=== PATIENT | female | born 1945 | race Caucasian/White ===

== ENCOUNTER 2019-12-22 09:44 | Outpatient (CLI) | payer MEDICARE, MEDICAID, SELFPAY | END 2019-12-22 09:45 | disposition home or self-care (01) | LOC: ANHAUDIO 12:03 | PROVIDERS: PCP Internal Medicine | DX: H90.3 Sensorineural hearing loss, bilateral (principal) | CPT/HCPCS: 92557; 92567 ==

== ENCOUNTER 2020-03-06 09:19 | Outpatient (RCR) | payer MEDICARE, MEDICAID, SELFPAY | END 2020-03-06 23:59 | disposition home or self-care (01) | LOC: ANHAUDIO 09:19 | PROVIDERS: PCP Internal Medicine | DX: Z46.1 Encounter for fitting and adjustment of hearing aid (principal) | CPT/HCPCS: V5160; V5261 ==

== ENCOUNTER 2021-01-03 10:25 | Outpatient (CLI) | payer MEDICARE, MEDICAID, SELFPAY ==
--- NOTE | ~2021-01-03 | CT_ITS ---
EXAMINATION: CT abdomen pelvis wo/w con DATE: 01/03/2021 11:31 INDICATION: Bilateral flank pain. Microscopic hematuria. TECHNIQUE: Computed tomography (CT) of the abdomen and pelvis was performed without and subsequently with 130 cc Omnipaque 350 intravenous contrast. Automated exposure control and iterative reconstructi on technique were employed. Exam dose: 1801.78 mGy-cm total exam DLP. COMPARISON: 10/15/[address] abdomen pelvis FINDINGS: The lung bases are clear of infiltrate or consolidation. Mild cardiomegaly. Coronary artery calcification. Prominent mitral annulus calcification. No pericard ial or pleural effusion. Very small sliding hiatal hernia. Status post cholecystectomy. No bile duct or pancreatic duct dilatation. No hepatic, splenic or liver and pancreatic, adrenal space-occupying mass lesion. Multiple bilateral up to 1.5 cm renal cysts. No urinary tract calculus or hydroureteronephrosis. The urinary bladder is unremarkable. Status post hysterectomy. There are diverticula of left and right colon; no CT evidence of diverticulitis. No bowel obstruction, bowel wall thickening, pneumatosis or intraperitoneal free air. There is extensive abdominal aortic calcification but no aneurysm. Celiac and superior mesenteric, re nal artery and iliac and femoral artery calcifications. No intraperitoneal or retroperitoneal or pelvic mass lesion or adenopathy or ascites. Diffuse osteopenia. Diffuse idiopathic skeletal hyperostosis of the thoracic spine. Degenerative spurring of the lumbar s pine. Status post right total hip arthroplasty. IMPRESSION: Multiple bilateral up to 1.5 cm renal cysts Very small sliding hiatal hernia Status post cholecystectomy Status post hysterectomy. Diverticulosis of left and right colon; no CT evidence of diverticulitis Reviewed, dictated and finalized at [facility]. Reviewed, dictated and finalized at location [facility].
[2021-01-03 11:00] LABS: Estimated Glomerular Filt Rate > 60
== END 2021-01-03 10:26 | disposition home or self-care (01) ==
PROVIDERS: PCP Family Medicine; Visit Provider Urology
DX: R31.1 Benign essential microscopic hematuria (principal); N28.1 Cyst of kidney, acquired; Z90.49 Acquired absence of other specified parts of digestive tract; K44.9 Diaphragmatic hernia without obstruction or gangrene; Z90.710 Acquired absence of both cervix and uterus; K57.90 Diverticulosis of intestine, part unspecified, without perforation or abscess without bleeding
CPT/HCPCS: 74178; Q9967

== ENCOUNTER 2021-08-29 09:28 | Emergency (ER) | payer MEDICARE, MEDICAID, SELFPAY ==
--- NOTE | 2021-08-29 09:55 | ED.URI ---
HPI - URI/Sore Throat General Chief Complaint: Upper Respiratory Infection Stated Complaint: congestion/cough/wheezing/body aches/post Source: patient and RN notes reviewed Mode of arrival: ambulatory History of Present Illness HPI Narrative: This is a 76 presented to urgent care with complaints of body aches, chills, productive cough with greenish sputum, headache, earache, slight shortness of breath, rib pain due to coughing and decreased appetite. Patient notes that she had one episode of diarrhea and notes that it all started Friday. Patient is requesting an influenza and Covid testing. Influenza negative she will go to our drive-through testing site for Covid testing. Patient is allergic to several antibiotics she has taken doxycycline and denies any reaction in the past to doxycycline she will be prescribed doxycycline. The patient denies , CP, palpitation, extremity numbness, lightheadedness, dizziness, constipation, diarrhea, chills, or fever. MD elicited complaint: cough, nasal congestion and sinus pain (Frontal and maxillary) Related Data Home Medications Medication Instructions Recorded Confirmed amlodipine 5 mg tablet 5 mg PO DAILY 07/16/19 aspirin 81 mg tablet,delayed 81 mg PO DAILY 07/16/19 07/28/19 release ferrous sulfate 325 mg (65 mg 325 mg PO DAILY 07/16/19 07/28/19 iron) tablet lubiprostone 8 mcg capsule 8 mcg PO BID 07/16/19 07/28/19 [id number] 3.5 1 drop EACH EYE .COMPLEX 07/16/19 07/28/19 mg/mL-10,000 unit/mL-0.1% eye drops netarsudil 0.02 % eye drops 1 drop EACH EYE QPM 07/16/19 07/28/19 triamcinolone acetonide 0.5 % 1 applic TOPICAL BID 07/16/19 07/28/19 topical cream azelastine drp 08/29/21 dorzolamide-timolol 08/29/21 hydroxyzine HCl 08/29/21 latanoprost drp 08/29/21 meloxicam 08/29/21 sertraline mg 08/29/21 Allergies Allergy/AdvReac Type Severity Reaction Status Date / Time amoxicillin Allergy Severe HIVES Verified 08/29/21 09:39 ampicillin Allergy Unknown Other Verified 08/29/21 09:39 azithromycin Allergy Unknown Other Verified 08/29/21 09:39 carisoprodol Allergy Unknown Other Verified 08/29/21 09:39 celecoxib Allergy Unknown Other Verified 08/29/21 09:39 ciprofloxacin Allergy Unknown Other Verified 08/29/21 09:39 codeine Allergy Unknown Other Verified 08/29/21 09:39 erythromycin base Allergy Unknown Nausea Verified 08/29/21 09:39 morphine Allergy Unknown Other Verified 08/29/21 09:39 Penicillins Allergy Unknown Other Verified 08/29/21 09:39 Review of Systems Review of Systems: A 14 organ system Review of Systems was performed and pertinent positives included in the HPI, otherwise remaining ROS is negative. [facility] Past Medical History Medical History (Updated 08/29/21 @ 10:08 by CIARA Harrell) Acid reflux Anemia Anxiety Cataract fragments in both eyes following surgery Depression Glaucoma High cholesterol Hypothyroidism Osteoporosis Pelvic organ prolapse quantification stage 1 rectocele Skin cancer of forehead Vaginal atrophy Surgical History Surgical History H/O hysterectomy with oophorectomy H/O shoulder surgery History of bladder surgery History of hip replacement Hx of cholecystectomy Family History Family History Mother Family history of coronary artery disease Family history of cardiovascular disease Sibling Diabetes mellitus Cerebrovascular accident Family history of malignant neoplasm of urinary bladder Family history of thyroid disease Family history of blood dyscrasia Asthma Family history of hearing loss Father Patient's father is Sibling Cerebrovascular accident Other Family history of lung disease Social History Social History Years smoked: 1 Smoking status: Former smoker Smoking end date:
[2021-08-29 10:00] VITALS: BP 155/84; PULSE 83; RESP 16; TEMP 36.9; O2SAT 93
== END 2021-08-29 10:15 | disposition home or self-care (01) ==
PROVIDERS: Emergency Provider Nurse Practitioner; PCP Family Medicine
DX: J01.10 Acute frontal sinusitis, unspecified (principal); Z20.822 Contact with and (suspected) exposure to COVID-19; Z87.891 Personal history of nicotine dependence; H40.9 Unspecified glaucoma; E78.00 Pure hypercholesterolemia, unspecified; E03.9 Hypothyroidism, unspecified; M81.0 Age-related osteoporosis without current pathological fracture; K21.9 Gastro-esophageal reflux disease without esophagitis; Z96.649 Presence of unspecified artificial hip joint; Z79.82 Long term (current) use of aspirin
CPT/HCPCS: 87804; 99213; G0463

== ENCOUNTER → 2021-08-30 01:43 | Outpatient (CLI) | payer MEDICARE, MEDICAID, SELFPAY ==
[2021-08-30 19:33] LABS: SARS-CoV-2 RNA PCR Positive
== END ==
PROVIDERS: PCP Family Medicine; Visit Provider Nurse Practitioner
DX: U07.1 COVID-19 (principal)
CPT/HCPCS: C9803; U0003; U0005

== ENCOUNTER 2022-03-11 10:49 | Outpatient (RCR) | payer MEDICARE, MEDICAID, SELFPAY | END 2022-03-11 23:59 | disposition home or self-care (01) | LOC: ANHAUDIO 10:49 | PROVIDERS: PCP Family Medicine; Visit Provider Family Medicine | DX: Z46.1 Encounter for fitting and adjustment of hearing aid (principal) | CPT/HCPCS: 99199 ==

== ENCOUNTER 2022-03-12 15:30 | Emergency (ER) | payer MEDICARE, MEDICAID, SELFPAY ==
--- NOTE | ~2022-03-12 | XR_ITS ---
XR hip LT min 2V DATE: 03/12/2022 16:11 INDICATION: Left hip pain since yesterday after lifting a mattress TECHNIQUE: AP and lateral views COMPARISON: None FINDINGS: Right hip replacement. Normal alignment at the pubic symphysis and sacroiliac joints. No fracture or dislocation, avascular necrosis or bone destruction of the left hip. Left hip joint sp krunal appears relatively well preserved. Degenerative spurring of the lumbar spine. IMPRESSION: No fracture or dislocation of the left hip Reviewed, dictated and finalized at location [facility].
[2022-03-12 15:49] VITALS: BP 118/60; PULSE 103; RESP 16; TEMP 36.1; O2SAT 95
[2022-03-12 16:27] VITALS: BP 133/78; PULSE 80; RESP 16; TEMP 36.8; O2SAT 98
--- NOTE | 2022-03-12 17:09 | ED.LOWEXIN ---
HPI - Extremity Injury (Lower) General Chief Complaint: Extremity Injury, Lower Stated Complaint: left hip pain Time Seen by Provider: 03/12/22 16:49 History of Present Illness HPI Narrative: 77-year-old female here for evaluation of left-sided gluteal pain for the past day. Patient states that she was lifting a heavy mattress in her house when she developed some crampy pain in her left glute. Since then, the pain has increased in nature, and has made it difficult to walk. She does bear weight on the hip but states it is painful. She has not taken a medication for her pain. Denies back pain, saddle anesthesia, incontinence or retention of bowel or bladder. Denies falls, trauma, weakness, numbness, tingling. Related Data Home Medications Medication Instructions Recorded Confirmed amlodipine 5 mg tablet 5 mg PO DAILY 07/16/19 aspirin 81 mg tablet,delayed 81 mg PO DAILY 07/16/19 07/28/19 release (Adult Low Dose Aspirin) ferrous sulfate 325 mg (65 mg 325 mg PO DAILY 07/16/19 07/28/19 iron) tablet lubiprostone 8 mcg capsule 8 mcg PO BID 07/16/19 07/28/19 (Amitiza) [id number]-lkfkrlyqg-lrsbhcoj 3.5 1 drop ophthalmic (eye) .COMPLEX 07/16/19 07/28/19 mg/mL-10,000 unit/mL-0.1% eye drops (Maxitrol) netarsudil 0.02 % eye drops 1 drop ophthalmic (eye) QPM 07/16/19 07/28/19 (Rhopressa) triamcinolone acetonide 0.5 % 1 applic topical BID 07/16/19 07/28/19 topical cream azelastine 0.05 % eye drops drp 08/29/21 dorzolamide 22.3 mg-timolol 6.8 08/29/21 mg/mL eye drops hydroxyzine HCl 25 mg tablet 08/29/21 latanoprost 0.005 % eye drops drp 08/29/21 meloxicam 7.5 mg tablet 08/29/21 sertraline 100 mg tablet mg 08/29/21 Allergies Allergy/AdvReac Type Severity Reaction Status Date / Time amoxicillin Allergy Severe HIVES Verified 08/29/21 09:39 ampicillin Allergy Unknown Other Verified 08/29/21 09:39 azithromycin Allergy Unknown Other Verified 08/29/21 09:39 carisoprodol Allergy Unknown Other Verified 08/29/21 09:39 celecoxib Allergy Unknown Other Verified 08/29/21 09:39 ciprofloxacin Allergy Unknown Other Verified 08/29/21 09:39 codeine Allergy Unknown Other Verified 08/29/21 09:39 erythromycin base Allergy Unknown Nausea Verified 08/29/21 09:39 morphine Allergy Unknown Other Verified 08/29/21 09:39 Penicillins Allergy Unknown Other Verified 08/29/21 09:39 Review of Systems Review of Systems: Gen: Denies fevers or chills Eyes: Denies eye pain or visual change ENT: Denies congestion Respiratory: Denies shortness of breath or cough CV: Denies chest pain or palpitations GI: Denies abdominal pain nausea, emesis or diarrhea : denies burning, urgency, frequency or hematuria Musculoskeletal: Reports left gluteal pain. Neuro: Denies numbness, tingling, weakness or focal weakness Skin: Denies rash Except as documented, all other systems reviewed and negative PMFSH Past Medical History Medical History Acid reflux Anemia Anxiety Cataract fragments in both eyes following surgery Depression Glaucoma High cholesterol Hypothyroidism Osteoporosis Pelvic organ prolapse quantification stage 1 rectocele Skin cancer of forehead Vaginal atrophy Surgical History Surgical History H/O hysterectomy with oophorectomy H/O shoulder surgery History of bladder surgery History of hip replacement Hx of cholecystectomy Family History Family History Mother Family history of coronary artery disease Family history of cardiovascular disease Sibling Diabetes mellitus Cerebrovascular accident Family history of malignant neoplasm of urinary bladder Family history of thyroid disease Family history of blood dyscrasia Asthma Family history of hearing loss Father Patient's father is Sibling Cerebrovasc
[2022-03-12] MEDS: ACETAMINOPHEN 325 MG TABLET 650 MG PO (17:34)
[2022-03-12] MEDS: LIDOCAINE 5% PATCH 1 PATCH TRANSDERM (17:34)
[2022-03-12 18:12] VITALS: BP 124/80; PULSE 81; RESP 14; TEMP 36.8; O2SAT 98
== END 2022-03-12 18:14 | disposition home or self-care (01) ==
PROVIDERS: Emergency Provider Family Medicine; PCP Family Medicine
DX: S76.012A Strain of muscle, fascia and tendon of left hip, initial encounter (principal); S73.102A Unspecified sprain of left hip, initial encounter; K21.9 Gastro-esophageal reflux disease without esophagitis; H40.9 Unspecified glaucoma; E78.00 Pure hypercholesterolemia, unspecified; E03.9 Hypothyroidism, unspecified; M81.0 Age-related osteoporosis without current pathological fracture; Z98.42 Cataract extraction status, left eye; Z98.41 Cataract extraction status, right eye; Z85.828 Personal history of other malignant neoplasm of skin; Z96.641 Presence of right artificial hip joint; Z86.2 Personal history of diseases of the blood and blood-forming organs and certain disorders involving the immune mechanism; Z79.82 Long term (current) use of aspirin; Z87.891 Personal history of nicotine dependence; X50.0XXA Overexertion from strenuous movement or load, initial encounter
CPT/HCPCS: 73502; 99283; A9270

== ENCOUNTER 2022-11-25 10:19 | Outpatient (CLI) | payer MEDICARE, MEDICAID, SELFPAY ==
--- NOTE | ~2022-11-25 | XR_ITS ---
XR lumbar spine 2-3V DATE: 11/25/2022 11:09 INDICATION: Generalized low back pain. No known injury. TECHNIQUE: AP, lateral, coned lateral lumbosacral views COMPARISON: 07/05/2016 lumbar spine FINDINGS: Normal alignment of the lumbar spine with exception of mild retrolisthesis at L4-5, likely due to degenerative disc disease. There is mild to moderate degenerative disease throughout the lumba r and lumbosacral spine, most prominent at L1-2. Included lower thoracic and lumbar pedicles are intact. No fracture or bone destruction is evident. The sacroiliac joints are intact. Status post right total hip arthroplasty. Surgical clips overlie the right upper and lower quadrants of the abdomen. There is extensive calcification of the abdominal aorta and iliac arteries, without apparent abdomina l aortic aneurysm. IMPRESSION: Moderate degenerative disc disease; little interval change since 07/05/2016 Reviewed, dictated and finalized at location [facility]. [employer]
--- NOTE | ~2022-11-25 | XR_ITS ---
XR thoracic spine 3V DATE: 11/25/2022 11:09 INDICATION: Generalized mid back pain. No known injury. TECHNIQUE: AP, lateral, swimmer views COMPARISON: None FINDINGS: Osteopenia. Severe cervical spondylosis. No fracture or dislocation or bone destruction of the thoracic spine is evident. The thoracic pedicle s appear intact. No paraspinal soft tissue thickening. There is prominent degenerative spurring of th e thoracic spine. IMPRESSION: Prominent degenerative spurring of the thoracic spine Osteopenia No thoracic spine fracture or dislocation or bone destruction is detected Reviewed, dictated and finalized at location [facility]. [employer]
--- NOTE | ~2022-11-25 | XR_ITS ---
XR cervical spine 4-5V DATE: 11/25/2022 11:09 INDICATION: Generalized neck pain. Limited left shoulder range of motion. No known injury. TECHNIQUE: AP, open-mouth, lateral, swimmer views COMPARISON: 05/04/2016 MR cervical spine FINDINGS: There is straightening and mild reversal of the cervical spine, which may be due to muscle spasm. C1 and C2 are normally aligned and the odontoid process is intact. No fracture or dislocation or lock ed facet or prevertebral soft tissue swelling. Very prominent spurring is noted anteriorly at C3-4, C4-5 and C5-6, with prominent posterior spurring as well at C4-5. There is severe loss of interspace height at C4-5. Uncovertebral joint spurring is noted, particularly at C4-5. There is degenerative change at the apop hyseal joints. Diffuse osteopenia. IMPRESSION: Straightening and mild reversal cervical spine, likely due to muscle spasm Severe cervical spondylosis Reviewed, dictated and finalized at location [facility]. GORY CONSULTANT IMPRESSION: Straightening and mild reversal cervical spine, likely due to muscl e spasm Severe cervical spondylosis
== END 2022-11-25 10:20 | disposition home or self-care (01) ==
PROVIDERS: PCP Family Medicine; Visit Provider Family Medicine
DX: M51.36 Other intervertebral disc degeneration, lumbar region (principal); M47.892 Other spondylosis, cervical region; M85.88 Other specified disorders of bone density and structure, other site
CPT/HCPCS: 72050; 72072; 72100

== ENCOUNTER 2022-12-11 17:46 | Inpatient (IN) | payer MEDICARE, MEDICAID, SELFPAY ==
[2022-12-11] VITALS (7 sets, daily range): BP systolic 105–146; BP diastolic 48–92; PULSE 88–120; RESP 15–25; TEMP 36.3–37.7; O2SAT 81–96; BMI 29.6
--- NOTE | ~2022-12-11 | CT_ITS ---
CT Scan of the Chest without Contrast: Clinical Indication: Pneumonia Technique: Contiguous sections were acquired throughout the chest without intravenous contrast. Dose reduction technique was used on this scan by utilizing automated exposure control and iterative recon struction technique. The dose-length product (DLP) was 549.73 mGy-cm. Findings: There is no evidence of any significant mediastinal, hilar or axillary lymphadenopathy. There are ath erosclerotic calcifications of the aorta. Coronary artery calcifications are also present. There is no evidence of pleural or pericardial effusion. The lungs are clear. No pulmonary nodules or infiltrates are noted. Images through the upper abdomen reveal no abnormalities. Impression: Clear lungs. Reviewed, dictated and finalized at location . Impression: Clear lungs.
--- NOTE | ~2022-12-11 | XR_ITS ---
EXAMINATION: XR chest 1V portable Exam Date/Time: 12/11/2022 18:00 CDT HISTORY: SOA, COUGH, CARDIOMEGALY Comparison: 12/28/2018. RESULT: Lines, tubes, and devices: None. Lungs and pleura: Increased peripheral reticular opacities. Cardiomediastinal silhouette: Stable. Other: No acute osseous or upper abdominal finding. IMPRESSION: Mild interstitial edema. Reviewed, dictated and finalized at location [facility]. IMPRESSION: Mild interstitial edema.
--- NOTE | ~2022-12-11 | XR_ITS ---
EXAMINATION: XR chest 1V portable INDICATION: Shortness of breath TECHNIQUE: Portable AP chest at 1122 hours COMPARISON: 12/11/2022 FINDINGS: There is a mild interstitial pattern with interval improvement. No pleural effusion or pneu mothorax. The cardiomediastinal silhouette is normal. IMPRESSION: 1. Mild pulmonary edema with interval improvement. Reviewed, dictated and finalized at location A.
--- NOTE | 2022-12-11 17:53 | PC.NURSE ---
Patient denies wearing O2 at home. patient placed on 4L NC at this time due to O2 saturation
[2022-12-11] MEDS: IPRATROPIUM BR 0.02% INH SOLN 0.5 MG/2.5 ML VIAL 1.5 MG INHALATION (18:15)
[2022-12-11] MEDS: ALBUTEROL SULFATE NEB 2.5 MG/3 ML INH 15 MG INHALATION (18:15)
[2022-12-11 18:25] LABS: Basophils Absolute Auto 0.1 K/mm3 (0.0-0.1); Basophils Percent Auto 0.4 % (0.2-1.2); Eosinophils Absolute Auto 0.1 K/mm3 (0-0.3); Eosinophils Percent Auto 0.5 % (0-4.4); Hematocrit 39.2 % (37.0-47.0); Hemoglobin 12.2 g/dL (12.0-15.0); Immature Granulocyte Absolute 0.14 K/mm3 (0.00-0.031); Immature Granulocyte Percent A 0.8 % (0-0.5); Immature Platelet Fraction Pct 2.8 % (0.9-11.2); Lymphocytes Absolute Auto 1.49 K/mm3 (0.9-3.2); Lymphocytes Percent Auto 8.8 % (18.3-44.2); Mean Corpuscular HGB Conc 31.1 g/dl (32-36); Mean Corpuscular Hemoglobin 26.1 pg (26-34); Mean Corpuscular Volume 83.9 fl (80-100); Mean Platelet Volume 10.6 fl (7.4-10.4); Monocytes Absolute Auto 1.1 K/mm3 (0.1-0.6); Monocytes Percent Auto 6.5 % (2.6-8.5); Platelet Count Result 324 k/mm3 (150-375); Red Blood Count 4.67 M/mm3 (4.2-5.4); Red Cell Distribution Width 13.5 % (11.5-14.5); White Blood Count 16.9 K/mm3 (4.5-10.0)
[2022-12-11 18:33] LABS: Lactic Acid Reflex 1.2 mmol/L (0.7-2.0)
[2022-12-11 18:42] LABS: Alanine Aminotransferase 14 U/L (6-35); Albumin Level 3.9 g/dL (3.5-5.1); Alkaline Phosphatase 70 U/L (38-126); Anion Gap 8 mmol/L (8-16); Aspartate Amino Transferase 20 U/L (14-36); Bilirubin,Total 0.5 mg/dL (0.2-1.3); Blood Urea Nitrogen 14 mg/dL (7-17); Calcium 9.4 mg/dL (8.4-10.2); Carbon Dioxide 27 mmol/L (22-30); Chloride 106 mmol/L (98-107); Estimated CRCL calculation 67 ml/min; Estimated Glomerular Filt Rate > 60; Glucose 145 mg/dL (65-110); Potassium 3.9 mmol/L (3.4-5.0); Sodium 141 mmol/L (137-145)
[2022-12-11 19:00] LABS: NT Pro B Type Natriuretic Pept 1360 pg/mL (19.9-100)
[2022-12-11 19:03] LABS: Influenza A QL RT-PCR Negative (Negative); Influenza B QL RT-PCR Negative (Negative); SARS-CoV-2 RNA PCR Negative
--- NOTE | 2022-12-11 20:43 | ED.GENADULT ---
HPI - General Adult General Chief complaint: Upper Respiratory Infection Stated complaint: Cough, fever Time Seen by Provider: 12/11/22 17:50 History of Present Illness HPI narrative: Patient is a 77-year-old female who presents ER with fever and cough. Ongoing for 4 days. Found to be hypoxic by EMS. Requiring 3 L of oxygen. Denies history of COPD or other lung disease. No chest pain or chest pressure. No pain with deep breath. Patient is oriented x3 but seems pretty confused about most conversation topics. Family reports patient has memory issues. Formal diagnosis of dementia not listed. Related Data Home Medications Medication Instructions Recorded Confirmed amlodipine 5 mg tablet 5 mg PO DAILY 07/16/19 aspirin 81 mg tablet,delayed 81 mg PO DAILY 07/16/19 07/28/19 release (Adult Low Dose Aspirin) ferrous sulfate 325 mg (65 mg 325 mg PO DAILY 07/16/19 07/28/19 iron) tablet lubiprostone 8 mcg capsule 8 mcg PO BID 07/16/19 07/28/19 (Amitiza) [id number]-xfxroprgn-mgbjkhkr 3.5 1 drop ophthalmic (eye) .COMPLEX 07/16/19 07/28/19 mg/mL-10,000 unit/mL-0.1% eye drops (Maxitrol) netarsudil 0.02 % eye drops 1 drop ophthalmic (eye) QPM 07/16/19 07/28/19 (Rhopressa) triamcinolone acetonide 0.5 % 1 applic topical BID 07/16/19 07/28/19 topical cream azelastine 0.05 % eye drops drp 08/29/21 dorzolamide 22.3 mg-timolol 6.8 08/29/21 mg/mL eye drops hydroxyzine HCl 25 mg tablet 08/29/21 latanoprost 0.005 % eye drops drp 08/29/21 meloxicam 7.5 mg tablet 08/29/21 sertraline 100 mg tablet mg 08/29/21 Allergies Allergy/AdvReac Type Severity Reaction Status Date / Time amoxicillin Allergy Severe HIVES Verified 08/29/21 09:39 ampicillin Allergy Unknown Other Verified 08/29/21 09:39 azithromycin Allergy Unknown Other Verified 08/29/21 09:39 carisoprodol Allergy Unknown Other Verified 08/29/21 09:39 celecoxib Allergy Unknown Other Verified 08/29/21 09:39 ciprofloxacin Allergy Unknown Other Verified 08/29/21 09:39 codeine Allergy Unknown Other Verified 08/29/21 09:39 erythromycin base Allergy Unknown Nausea Verified 08/29/21 09:39 morphine Allergy Unknown Other Verified 08/29/21 09:39 Penicillins Allergy Unknown Other Verified 08/29/21 09:39 Review of Systems Review of Systems: All systems reviewed & are unremarkable except as noted in HPI and below Constitutional: Constitutional: Denies chills, Reports fatigue and Reports fever(s) ENT: Denies nasal congestion and Denies sore throat Cardiovascular: Cardiovascular: Denies chest pain, Denies rapid heart rate and Denies radiating jaw, neck or arm pain Respiratory: Respiratory: Reports cough, Reports dyspnea and Denies wheezing Gastrointestinal: Gastrointestinal: Denies abdominal pain, Denies nausea and Denies vomiting [facility] Past Medical History Medical History (Updated 12/11/22 @ 21:19 by Tommie Whatley MD) Acid reflux Anemia Anxiety Cataract fragments in both eyes following surgery Depression Glaucoma High cholesterol Hypothyroidism Osteoporosis Pelvic organ prolapse quantification stage 1 rectocele Skin cancer of forehead Vaginal atrophy Surgical History Surgical History H/O hysterectomy with oophorectomy H/O shoulder surgery History of bladder surgery History of hip replacement Hx of cholecystectomy Family History Family History Mother Family history of coronary artery disease Family history of cardiovascular disease Sibling Diabetes mellitus Cerebrovascular accident Family history of malignant neoplasm of urinary bladder Family history of thyroid disease Family history of blood dyscrasia Asthma Family history of hearing loss Father Patient's father is Sibling Cerebrovascular accident Other Family history of lung disease Social History Social History (Rev
--- NOTE | 2022-12-11 20:44 | PM.IMHP ---
H&P: HPI History of Present Illness Date/Time: 12/11/22 20:44 Chief Complaint: Shortness of breath Narrative: This is a 77-year-old female with past medical history significant for hypertension, glaucoma, degenerative joint disease, depression, dyslipidemia, GERD, resides at assisted living facility. Patient was brought to the emergency room for evaluation due to cough and shortness of breath with poor appetite generalized weakness chills, night sweats. Preliminary workup was significant for BNP of 1340, white count of 16,000, a chest x-ray was reported as: IMPRESSION: Mild interstitial edema. Review of Systems Review of Systems: Shortness of breath, chills, poor appetite Constitutional: Constitutional: Reports chills, Reports fatigue, Reports fever(s), Reports lethargy, Reports malaise, Reports night sweats, Reports poor appetite and Reports weakness Eyes: Eyes: Denies change in vision ENT: Denies dysphagia, Denies vertigo, Denies dizziness and Denies odynophagia Cardiovascular: Cardiovascular: Denies chest pain, Denies leg edema, Denies lightheadedness and Denies palpitations Respiratory: Respiratory: Reports chest congestion, Reports cough and Reports dyspnea Gastrointestinal: Gastrointestinal: Denies abdominal pain, Denies dyspepsia, Denies heartburn, Denies diarrhea, Denies nausea and Denies vomiting Genitourinary: Genitourinary: Denies dysuria Musculoskeletal: Musculoskeletal: Denies myalgias and Reports muscle weakness Integumentary/Breasts: Skin/Breast: Denies rash Neurologic: Denies focal weakness and Denies Sensory deficit (Neuro) Psychiatric: Psychiatric: Reports no additional psychiatric complaints and Reports as per HPI Endocrine: Endocrine: Denies cold intolerance, Denies flushing, Denies heat intolerance, Denies polyphagia, Denies polydipsia and Denies palpitations Hematologic/Lymphatic: Hematologic/Lymphatic: Reports no additional hematologic/lymphatic complaints and Reports as per HPI Allergic/Immunologic: Allergic/Immunologic: Reports no additional allergic/immunologic complaints and Reports as per HPI PMFSH Past Medical History Medical History (Updated 12/11/22 @ 21:19 by Tommie Whatley MD) Acid reflux Anemia Anxiety Cataract fragments in both eyes following surgery Depression Glaucoma High cholesterol Hypothyroidism Osteoporosis Pelvic organ prolapse quantification stage 1 rectocele Skin cancer of forehead Vaginal atrophy Surgical History Surgical History H/O hysterectomy with oophorectomy H/O shoulder surgery History of bladder surgery History of hip replacement Hx of cholecystectomy Family History Family History Mother Family history of coronary artery disease Family history of cardiovascular disease Sibling Diabetes mellitus Cerebrovascular accident Family history of malignant neoplasm of urinary bladder Family history of thyroid disease Family history of blood dyscrasia Asthma Family history of hearing loss Father Patient's father is Sibling Cerebrovascular accident Other Family history of lung disease Social History Social History Years smoked: 1 Smoking status: Former smoker Smoking end date: 09/22/69 Alcohol intake: never Substance use: never Lack of Transportation: No Lack of Food: Never True Current Housing: I Have Housing Concerned About Future Housing: No Difficulty Paying Gas/Electric Bills: No Difficulty Paying for Meds: No Currently Unemployed: No Education: Grade School Difficulty w/ Childcare or Family Care: No Gender identity (if verbalized by the patient): Female Spiritual care concerns: No Meds Home Medications and Allergies Home Medications Medication Instructions Recorded Conf
[2022-12-11] MEDS: DOXYCYCLINE 100 MG/NS 100 ML 100 MG/100 ML BAG IVPB (21:16)
[2022-12-12] VITALS (14 sets, daily range): BP systolic 111–146; BP diastolic 48–65; PULSE 66–90; RESP 14–20; TEMP 35.8–37.4; O2SAT 95–97
--- NOTE | 2022-12-12 | ECHO_ITS ---
Patient Info Name: Krystina Thomas Age: 77 years : 1945 Gender: Female Ht: 64 in Wt: 172 lbs BSA: 1.90 m2 HR: 90 bpm BP: 146 / 48 mmHg Heart Rhythm: Sinus Rhythm Technical Quality: Poor Exam Date: 12/12/2022 10:57 AM Exam Location: [facility] Pulmonary Exam Room: 331 Patient Status: Inpatient Admit Date: 12/12/2022 Staff Ordering Physician: Jodie Nicholas MD Wall Insulation Sprayer: Jyoti Hayes RDCS Attending Provider: Jodie Nicholas MD Referring Physician: Cristopher ROBERT; Exam Type: CA echo dop color flow w con Study Info Indications - ELEVATED BNP Complete two-dimensional, color flow and Doppler transthoracic echocardiogram is performed with contrast to opacify the left ventricle and to improve the deliniation of the left ventricle endocardial borders. Contrast/Agitated Saline Contrast/Ag. Saline: Definity Amount: 2.00 ml Administered By: Jyoti Hayes [facility] Existing IV Access: Yes IV Access Condition: patent with no signs of infiltration Reason for Poor Study: poor echocardiographic windows Summary 1. Concentric left ventricular hypertrophy with hyperdynamic systolic function and grade 2 diastolic noncompliance. 2. Enlarged left atrium. 3. Heavily calcified mitral valve annulus. 4. Sclerotic aortic valve with no significant stenosis. Left Ventricle Left ventricular chamber dimension is normal. Left ventricular systolic function is hyperdynamic, estimated at >70%. There is moderate concentric increased left ventricular wall thickness. The left ventricular diastolic function is grade II diastolic dysfunction. Right Ventricle Right ventricular chamber dimension is normal. Left Atria Left atrial chamber dimension is moderately enlarged. Right Atria Right atrial chamber dimension is normal. Aortic Valve The aortic valve is trileaflet. There is mild aortic valve sclerosis. There is no aortic valve stenosis. Pulmonic Valve The pulmonic valve is not well visualized. Mitral Valve The mitral valve has normal leaflets. The mitral valve annulus is severely calcified. Tricuspid Valve The tricuspid valve leaflets are normal. Pericardium/Pleural The pericardium appears normal. Aorta The aortic root size at the sinus of Valsalva is normal. Left Ventricular Outflow Tract Name Value Normal LVOT 2D LVOT Diameter 1.99 cm LVOT Doppler LVOT Peak Gradient 9 mmHg LVOT Mean Gradient 6 mmHg LVOT VTI 28.76 cm LVOT VTI/AV VTI Ratio 0.79 LVOT Stroke Volume 89.39 ml LVOT CO 21.51 l/min LVOT CI 11.32 L/min/m2 Pulmonic Valve Name Value Normal PV Doppler PV Peak Gr
[2022-12-12] MEDS: ACETAMINOPHEN 500 MG TABLET 1000 MG PO ×2 (02:47→17:25)
[2022-12-12] MEDS: ALBUTEROL SULFATE NEB 2.5 MG/3 ML INH INHALATION ×4 (04:26→21:57)
[2022-12-12] MEDS: IPRATROPIUM BR 0.02% INH SOLN 0.5 MG/2.5 ML VIAL INHALATION ×4 (04:27→21:56)
[2022-12-12] MEDS: LEVOTHYROXINE SODIUM 75 MCG TABLET PO (06:37)
[2022-12-12] MEDS: FUROSEMIDE INJ 40 MG/4 ML VIAL IV PUSH ×2 (08:18→17:24)
[2022-12-12] MEDS: DORZOLAMIDE/TIMOLOL OPHTH SOL 10 ML BOTTLE 1 DROP EACH EYE ×2 (08:18→21:05)
[2022-12-12] MEDS: amLODIPine BESYLATE 5 MG TABLET PO (08:19)
[2022-12-12] MEDS: ASPIRIN 81 MG ENTERIC TABLET PO (08:24)
[2022-12-12] MEDS: LUBIPROSTONE 8 MCG CAPSULE PO ×2 (08:24→21:06)
[2022-12-12] MEDS: SIMVASTATIN 20 MG TABLET 40 MG PO (08:25)
[2022-12-12] MEDS: PANTOPRAZOLE 40 MG TABLET PO ×2 (08:25→17:24)
--- NOTE | 2022-12-12 09:38 | PM.IMPN ---
Progress Note: A&P Assessment and Plan (1) Pneumonia: Code(s): J18.9 - Pneumonia, unspecified organism Status: Acute Assessment and Plan: Patient with known multiple allergies to penicillins, cephalosporins and fluoroquinolones, unsure of severity or type of reaction at this time Started on doxycycline 12/11 Cultures in progress (2) Hypoxia: Code(s): R09.02 - Hypoxemia Status: Acute Assessment and Plan: Wean oxygen as tolerated, currently satting 95% on 3L nc (3) Fatigue: Code(s): R53.83 - Other fatigue Status: Acute Assessment and Plan: Likely secondary to acute illness PT OT ordered (4) Chronic GERD: Code(s): K21.9 - Gastro-esophageal reflux disease without esophagitis Status: Acute Assessment and Plan: PPI (5) Chronic back pain greater than 3 months duration: Code(s): M54.9 - Dorsalgia, unspecified; G89.29 - Other chronic pain Status: Acute Assessment and Plan: Tylenol as needed (6) Essential (primary) hypertension: Code(s): I10 - Essential (primary) hypertension Status: Acute Assessment and Plan: Continue home meds Continue to monitor BP reviewed 12/12 (7) Diastolic dysfunction: Code(s): I51.89 - Other ill-defined heart diseases Status: Acute Assessment and Plan: Gentle diuresis Echocardiogram pending Plan DVT prophylaxis with SCDs GI prophylaxis not indicated Code status full code Subjective Date/time seen: 12/12/22 09:38 Interval history: 77-year-old female past medical history significant for hypertension, hyperlipidemia and GERD is presenting from assisted living facility for cough, shortness of breath and generalized weakness, found to have pneumonia and possible heart failure exacerbation and started on doxycycline and IV diuresis. Patient states she feels much better than when she came in. No overnight events noted. No chest pain or shortness of breath. No nausea, vomiting or diarrhea. No fevers or chills. Review of Systems Review of Systems: 12 point review of systems was assessed and was negative except as noted in the HPI Exam Narrative: General: No acute distress, alert and oriented per baseline HEENT: Atraumatic, normocephalic, mucous membranes moist CV: Regular rate and rhythm, S1, S2 Lungs: Scattered crackles, diminished at bases Abdomen: Soft, nontender, nondistended Extremities: Normal to inspection, +1 nonpitting edema bilaterally Skin: No rashes noted, no lesions or wounds seen Psych: Euthymic, normal affect Objective Data Vital Signs Vital Signs: Vital Signs - 24 hr 12/11/22 17:44 12/11/22 17:52 12/11/22 18:20 Temperature 99.8 F H Pulse Rate 120 H 120 H Respiratory Rate 15 25 H Blood Pressure 146/55 H Pulse Oximetry 81 L 95 Oxygen Delivery Room Air Oxygen Flow Rate 12/11/22 20:22 12/11/22 20:31 12/12/22 00:28 Temperature 99.2 F Pulse Rate 103 H 97 88 Respiratory Rate 24 H 19 16 Blood Pressure 105/92 H Pulse Oximetry 92 96 Oxygen Delivery Nasal Cannula Oxygen Flow Rate 4 12/11/22 23:26 12/12/22 04:27 12/12/22 04:52 Temperature 97.4 F L 97.1 F L Pulse Rate 88 69 90 Respiratory Rate 16 20 20 Blood Pressure 131/48 L 146/48 H Pulse Oximetry 96 96 Oxygen Delivery Oxygen Flow Rate 12/12/22 07:10 12/12/22 07:10 12/12/22 07:20 Temperature Pulse Rate 73 73 76 Respiratory Rate 18 18 18 Blood Pressure Pulse Oximetry 95 Oxygen Delivery Nasal Cannula Oxygen Flow Rate 3 12/12/22 08:12 12/11/22 23:55 Temperature 97.4 F L Pulse Rate 79 88 Respiratory Rate 18 16 Blood Pressure 111/52 L 131/48 L Pulse Oximetry 96 Oxygen Delivery Oxygen Flow Rate Intake/Output Intake/Output: Intake & Output 12/09/22 12/10/22 12/11/22 12/12/22 23:59 23:59 23:59 23:59 Intake Total 100 150 Balance 100 150 Meds/Results Med
[2022-12-12 10:26] LABS: Basophils Percent Auto 0.4 % (0.2-1.2); Eosinophils Percent Auto 0.3 % (0-4.4); Hematocrit 36.1 % (37.0-47.0); Hemoglobin 10.9 g/dL (12.0-15.0); Immature Granulocyte Absolute 0.09 K/mm3 (0.00-0.031); Immature Granulocyte Percent A 0.8 % (0-0.5); Lymphocytes Absolute Auto 2.16 K/mm3 (0.9-3.2); Lymphocytes Percent Auto 19.1 % (18.3-44.2); Mean Corpuscular HGB Conc 30.2 g/dl (32-36); Mean Corpuscular Hemoglobin 25.9 pg (26-34); Mean Corpuscular Volume 85.7 fl (80-100); Mean Platelet Volume 10.5 fl (7.4-10.4); Monocytes Percent Auto 8.7 % (2.6-8.5); Neutrophils Percent Auto 70.7 % (45.5-73.1); Platelet Count Result 317 k/mm3 (150-375); Red Blood Count 4.21 M/mm3 (4.2-5.4); Red Cell Distribution Width 13.6 % (11.5-14.5); White Blood Count 11.3 K/mm3 (4.5-10.0)
[2022-12-12 10:31] LABS: Alanine Aminotransferase 13 U/L (6-35); Albumin Level 3.6 g/dL (3.5-5.1); Alkaline Phosphatase 55 U/L (38-126); Anion Gap 4 mmol/L (8-16); Aspartate Amino Transferase 25 U/L (14-36); Bilirubin,Total 0.5 mg/dL (0.2-1.3); Blood Urea Nitrogen 17 mg/dL (7-17); Calcium 9.3 mg/dL (8.4-10.2); Carbon Dioxide 32 mmol/L (22-30); Chloride 104 mmol/L (98-107); Estimated CRCL calculation 59 ml/min; Estimated Glomerular Filt Rate > 60; Glucose 125 mg/dL (65-110); Potassium 3.8 mmol/L (3.4-5.0); Sodium 140 mmol/L (137-145)
[2022-12-12] MEDS: DOXYCYCLINE 100 MG/NS 100 ML 100 MG/100 ML BAG IVPB ×2 (10:38→21:06)
[2022-12-12] MEDS: PERFLUTREN LIPID MICROSPHERES 1.5 ML VIAL DILUTED TO 10 ML TOTAL VOLUME IV PUSH (11:30)
--- NOTE | 2022-12-12 15:43 | PM.IMPN ---
Progress Note: A&P Assessment and Plan (1) Pneumonia: Code(s): J18.9 - Pneumonia, unspecified organism Status: Acute Assessment and Plan: Patient with known multiple allergies to penicillins, cephalosporins and fluoroquinolones, unsure of severity or type of reaction at this time Started on doxycycline 12/11 Cultures in progress (2) Hypoxia: Code(s): R09.02 - Hypoxemia Status: Acute Assessment and Plan: Wean oxygen as tolerated, currently satting 95% on 3L nc (3) Fatigue: Code(s): R53.83 - Other fatigue Status: Acute Assessment and Plan: Likely secondary to acute illness PT OT ordered (4) Chronic GERD: Code(s): K21.9 - Gastro-esophageal reflux disease without esophagitis Status: Acute Assessment and Plan: PPI (5) Chronic back pain greater than 3 months duration: Code(s): M54.9 - Dorsalgia, unspecified; G89.29 - Other chronic pain Status: Acute Assessment and Plan: Tylenol as needed (6) Essential (primary) hypertension: Code(s): I10 - Essential (primary) hypertension Status: Acute Assessment and Plan: Continue home meds Continue to monitor BP reviewed 12/12 (7) Diastolic dysfunction: Code(s): I51.89 - Other ill-defined heart diseases Status: Acute Assessment and Plan: Gentle diuresis Echocardiogram pending Plan DVT prophylaxis with SCDs GI prophylaxis not indicated Code status full code Subjective Date/time seen: 12/12/22 15:43 Interval history: 77-year-old female past medical history significant for hypertension, hyperlipidemia and GERD is presenting from assisted living facility for cough, shortness of breath and generalized weakness, found to have pneumonia and possible heart failure exacerbation and started on doxycycline and IV diuresis. Patient states she feels much better than when she came in. No overnight events noted. No chest pain or shortness of breath. No nausea, vomiting or diarrhea. No fevers or chills. Review of Systems Review of Systems: 12 point review of systems was assessed and was negative except as noted in the HPI Exam Narrative: General: No acute distress, alert and oriented per baseline HEENT: Atraumatic, normocephalic, mucous membranes moist CV: Regular rate and rhythm, S1, S2 Lungs: Scattered crackles, diminished at bases Abdomen: Soft, nontender, nondistended Extremities: Normal to inspection, +1 nonpitting edema bilaterally Skin: No rashes noted, no lesions or wounds seen Psych: Euthymic, normal affect Objective Data Vital Signs Vital Signs: Vital Signs - 24 hr 12/11/22 17:44 12/11/22 17:52 12/11/22 18:20 Temperature 99.8 F H Pulse Rate 120 H 120 H Respiratory Rate 15 25 H Blood Pressure 146/55 H Pulse Oximetry 81 L 95 Oxygen Delivery Room Air Oxygen Flow Rate 12/11/22 20:22 12/11/22 20:31 12/12/22 00:28 Temperature 99.2 F Pulse Rate 103 H 97 88 Respiratory Rate 24 H 19 16 Blood Pressure 105/92 H Pulse Oximetry 92 96 Oxygen Delivery Nasal Cannula Oxygen Flow Rate 4 12/11/22 23:26 12/12/22 04:27 12/12/22 04:52 Temperature 97.4 F L 97.1 F L Pulse Rate 88 69 90 Respiratory Rate 16 20 20 Blood Pressure 131/48 L 146/48 H Pulse Oximetry 96 96 Oxygen Delivery Oxygen Flow Rate 12/12/22 07:10 12/12/22 07:10 12/12/22 07:20 Temperature Pulse Rate 73 73 76 Respiratory Rate 18 18 18 Blood Pressure Pulse Oximetry 95 Oxygen Delivery Nasal Cannula Oxygen Flow Rate 3 12/12/22 08:12 12/12/22 13:26 12/12/22 14:00 Temperature 98.0 F Pulse Rate 79 71 Respiratory Rate 18 20 Blood Pressure 111/52 L 124/51 L Pulse Oximetry 96 Oxygen Delivery Nasal Cannula Oxygen Flow Rate 3 12/12/22 14:33 12/12/22 14:48 12/11/22 23:55 Temperature 97.4 F L Pulse Rate 66 83 88 Respiratory Rate 18 18 16 Blood Pressure 131/48
[2022-12-12] MEDS: SERTRALINE HCL 50 MG TABLET 100 MG PO (21:05)
[2022-12-13] VITALS (13 sets, daily range): BP systolic 114–136; BP diastolic 51–86; PULSE 68–95; RESP 16–20; TEMP 35.8–36.6; O2SAT 94–100
[2022-12-13] MEDS: ACETAMINOPHEN 500 MG TABLET 1000 MG PO ×2 (02:50→16:48)
[2022-12-13] MEDS: IPRATROPIUM BR 0.02% INH SOLN 0.5 MG/2.5 ML VIAL INHALATION ×4 (03:00→21:07)
[2022-12-13] MEDS: ALBUTEROL SULFATE NEB 2.5 MG/3 ML INH INHALATION ×4 (03:00→21:07)
[2022-12-13] MEDS: LEVOTHYROXINE SODIUM 75 MCG TABLET PO (05:13)
[2022-12-13 06:30] LABS: Basophils Absolute Auto 0.1 K/mm3 (0.0-0.1); Basophils Percent Auto 0.4 % (0.2-1.2); Eosinophils Absolute Auto 0.1 K/mm3 (0-0.3); Eosinophils Percent Auto 0.5 % (0-4.4); Hematocrit 34.7 % (37.0-47.0); Hemoglobin 10.4 g/dL (12.0-15.0); Immature Granulocyte Absolute 0.08 K/mm3 (0.00-0.031); Immature Granulocyte Percent A 0.7 % (0-0.5); Lymphocytes Absolute Auto 2.51 K/mm3 (0.9-3.2); Lymphocytes Percent Auto 22.2 % (18.3-44.2); Mean Corpuscular Hemoglobin 26.3 pg (26-34); Mean Corpuscular Volume 87.8 fl (80-100); Mean Platelet Volume 10.7 fl (7.4-10.4); Monocytes Absolute Auto 0.9 K/mm3 (0.1-0.6); Monocytes Percent Auto 7.7 % (2.6-8.5); Neutrophils Absolute Auto 7.7 K/mm3 (1.3-6.7); Neutrophils Percent Auto 68.5 % (45.5-73.1); Platelet Count Result 316 k/mm3 (150-375); Red Blood Count 3.95 M/mm3 (4.2-5.4); Red Cell Distribution Width 13.5 % (11.5-14.5); White Blood Count 11.3 K/mm3 (4.5-10.0)
[2022-12-13 06:42] LABS: Alanine Aminotransferase 13 U/L (6-35); Albumin Level 3.5 g/dL (3.5-5.1); Alkaline Phosphatase 53 U/L (38-126); Anion Gap 5 mmol/L (8-16); Aspartate Amino Transferase 24 U/L (14-36); Bilirubin,Total 0.5 mg/dL (0.2-1.3); Blood Urea Nitrogen 19 mg/dL (7-17); Calcium 8.9 mg/dL (8.4-10.2); Carbon Dioxide 31 mmol/L (22-30); Chloride 103 mmol/L (98-107); Estimated CRCL calculation 52 ml/min; Estimated Glomerular Filt Rate > 60; Glucose 119 mg/dL (65-110); Potassium 3.7 mmol/L (3.4-5.0); Sodium 139 mmol/L (137-145)
[2022-12-13] MEDS: PANTOPRAZOLE 40 MG TABLET PO ×2 (08:42→16:48)
[2022-12-13] MEDS: DORZOLAMIDE/TIMOLOL OPHTH SOL 10 ML BOTTLE 1 DROP EACH EYE ×2 (08:42→21:11)
[2022-12-13] MEDS: amLODIPine BESYLATE 5 MG TABLET PO (08:42)
[2022-12-13] MEDS: LUBIPROSTONE 8 MCG CAPSULE PO ×2 (08:42→21:10)
[2022-12-13] MEDS: ASPIRIN 81 MG ENTERIC TABLET PO (08:42)
[2022-12-13] MEDS: FUROSEMIDE INJ 40 MG/4 ML VIAL IV PUSH (08:42)
[2022-12-13] MEDS: SIMVASTATIN 20 MG TABLET 40 MG PO (08:43)
--- NOTE | 2022-12-13 12:16 | PM.IMPN ---
Progress Note: A&P Assessment and Plan (1) Pneumonia: Code(s): J18.9 - Pneumonia, unspecified organism Status: Acute Assessment and Plan: Patient with known multiple allergies to penicillins, cephalosporins and fluoroquinolones, unsure of severity or type of reaction at this time 12/13: Started on doxycycline at admission on 12/11, was on it for 3 days prior to admission, started 12/08 outpatient, today is day 6 of abx, improving symptoms, switch to oral 12/13, anticipate end date to be 12/14 (2) Hypoxia: Code(s): R09.02 - Hypoxemia Status: Acute Assessment and Plan: Wean oxygen as tolerated, currently satting 95% on 2L nc Home O2 eval ordered for tomorrow [facility] tonight (3) Fatigue: Code(s): R53.83 - Other fatigue Status: Acute Assessment and Plan: Likely secondary to acute illness PT OT ordered (4) Chronic GERD: Code(s): K21.9 - Gastro-esophageal reflux disease without esophagitis Status: Acute Assessment and Plan: PPI (5) Chronic back pain greater than 3 months duration: Code(s): M54.9 - Dorsalgia, unspecified; G89.29 - Other chronic pain Status: Acute Assessment and Plan: Tylenol as needed (6) Essential (primary) hypertension: Code(s): I10 - Essential (primary) hypertension Status: Acute Assessment and Plan: Continue home meds Continue to monitor BP reviewed 12/13 (7) Diastolic dysfunction: Code(s): I51.89 - Other ill-defined heart diseases Status: Acute Assessment and Plan: Gentle diuresis with IV lasix 40 mg BID, BUN/creat slowly increasing, oxygen needs decreasing, will decrease diuresis to lasix 40 mg daily 12/13, monitor response tomorrow Echocardiogram report showed an EF of greater than 70% with grade 2 diastolic dysfunction Plan DVT prophylaxis with SCDs GI prophylaxis not indicated Code status full code Subjective Date/time seen: 12/13/22 12:16 Interval history: 77-year-old female past medical history significant for hypertension, hyperlipidemia and GERD is presenting from assisted living facility for cough, fever, shortness of breath and generalized weakness, found to have pneumonia and possible heart failure exacerbation and started on doxycycline and IV diuresis. No overnight events noted. No chest pain or shortness of breath. No nausea, vomiting or diarrhea. No fevers or chills. Patient is eager to go home. Review of Systems Review of Systems: 12 point review of systems was assessed and was negative except as noted in the HPI Exam Narrative: General: No acute distress, alert and oriented per baseline HEENT: Atraumatic, normocephalic, mucous membranes moist CV: Regular rate and rhythm, S1, S2 Lungs: No wheezes, somewhat diminished throughout, bibasilar crackles noted Abdomen: Soft, nontender, nondistended Extremities: Normal to inspection, trace pitting edema bilaterally Skin: No rashes noted, no lesions or wounds seen Psych: Euthymic, normal affect Objective Data Vital Signs Vital Signs: Vital Signs - 24 hr 12/12/22 13:26 12/12/22 14:00 12/12/22 14:33 Temperature 98.0 F Pulse Rate 71 66 Respiratory Rate 20 18 Blood Pressure 124/51 L Pulse Oximetry 96 Oxygen Delivery Nasal Cannula Oxygen Flow Rate 3 Fraction of Inspired Oxygen 12/12/22 14:48 12/12/22 15:29 12/12/22 17:25 Temperature 99.4 F Pulse Rate 83 Respiratory Rate 18 Blood Pressure Pulse Oximetry Oxygen Delivery Nasal Cannula Oxygen Flow Rate 3 Fraction of Inspired Oxygen 12/12/22 20:00 12/12/22 21:58 12/12/22 21:59 Temperature Pulse Rate 67 67 Respiratory Rate 16 16 Blood Pressure Pulse Oximetry 97 96 Oxygen Delivery Nasal Cannula Nasal Cannula Oxygen Flow Rate 4 3 Fraction of Inspired Oxygen 32 12/12/22 22:00 12/13/22 05:45 12/13/22 03:00 Temperature 96.4 F L 96.9 F L Puls
--- NOTE | 2022-12-13 13:24 | PCOTNOTE ---
Attempted to see pt for Occupational Therapy treatment. Pt refused to participate and/or get out of bed stating increase fatigue and being too cold. Pt stated I promise I will try tomorrow... . Pt was educated on the importance of continued therapy for strengthening/independence with daily occupations. Will continue per POC duration/frequency tomorrow.
[2022-12-13] MEDS: DOXYCYCLINE HYCLATE 100 MG TABLET PO (21:10)
[2022-12-13] MEDS: SERTRALINE HCL 50 MG TABLET 100 MG PO (21:10)
[2022-12-14] VITALS (13 sets, daily range): BP systolic 134–146; BP diastolic 55–96; PULSE 65–90; RESP 16–20; TEMP 35.6–37.2; O2SAT 88–97
[2022-12-14] MEDS: LEVOTHYROXINE SODIUM 75 MCG TABLET PO (05:41)
[2022-12-14 06:59] LABS: Basophils Absolute Auto 0.1 K/mm3 (0.0-0.1); Basophils Percent Auto 0.6 % (0.2-1.2); Eosinophils Absolute Auto 0.2 K/mm3 (0-0.3); Eosinophils Percent Auto 1.7 % (0-4.4); Hematocrit 36.5 % (37.0-47.0); Immature Granulocyte Absolute 0.08 K/mm3 (0.00-0.031); Immature Granulocyte Percent A 0.8 % (0-0.5); Lymphocytes Absolute Auto 2.64 K/mm3 (0.9-3.2); Lymphocytes Percent Auto 25.2 % (18.3-44.2); Mean Corpuscular HGB Conc 30.1 g/dl (32-36); Mean Corpuscular Hemoglobin 25.2 pg (26-34); Mean Corpuscular Volume 83.5 fl (80-100); Mean Platelet Volume 10.9 fl (7.4-10.4); Monocytes Absolute Auto 0.8 K/mm3 (0.1-0.6); Monocytes Percent Auto 7.8 % (2.6-8.5); Neutrophils Absolute Auto 6.7 K/mm3 (1.3-6.7); Neutrophils Percent Auto 63.9 % (45.5-73.1); Platelet Count Result 332 k/mm3 (150-375); Red Blood Count 4.37 M/mm3 (4.2-5.4); Red Cell Distribution Width 13.2 % (11.5-14.5); White Blood Count 10.5 K/mm3 (4.5-10.0)
[2022-12-14 07:25] LABS: Alanine Aminotransferase 14 U/L (6-35); Albumin Level 3.6 g/dL (3.5-5.1); Alkaline Phosphatase 60 U/L (38-126); Anion Gap 6 mmol/L (8-16); Aspartate Amino Transferase 25 U/L (14-36); Bilirubin,Total 0.6 mg/dL (0.2-1.3); Blood Urea Nitrogen 20 mg/dL (7-17); Calcium 9.3 mg/dL (8.4-10.2); Carbon Dioxide 34 mmol/L (22-30); Chloride 100 mmol/L (98-107); Estimated CRCL calculation 68 ml/min; Estimated Glomerular Filt Rate > 60; Glucose 111 mg/dL (65-110); Potassium 3.5 mmol/L (3.4-5.0); Sodium 140 mmol/L (137-145)
[2022-12-14] MEDS: amLODIPine BESYLATE 5 MG TABLET PO (08:29)
[2022-12-14] MEDS: SIMVASTATIN 20 MG TABLET 40 MG PO (08:29)
[2022-12-14] MEDS: PANTOPRAZOLE 40 MG TABLET PO ×2 (08:30→16:57)
[2022-12-14] MEDS: DORZOLAMIDE/TIMOLOL OPHTH SOL 10 ML BOTTLE 1 DROP EACH EYE ×2 (08:30→20:18)
[2022-12-14] MEDS: LUBIPROSTONE 8 MCG CAPSULE PO ×2 (08:30→20:18)
[2022-12-14] MEDS: DOXYCYCLINE HYCLATE 100 MG TABLET PO ×2 (08:30→20:18)
[2022-12-14] MEDS: FUROSEMIDE INJ 40 MG/4 ML VIAL IV PUSH (08:30)
[2022-12-14] MEDS: ASPIRIN 81 MG ENTERIC TABLET PO (08:30)
[2022-12-14] MEDS: IPRATROPIUM BR 0.02% INH SOLN 0.5 MG/2.5 ML VIAL INHALATION ×2 (09:23→13:40)
[2022-12-14] MEDS: ALBUTEROL SULFATE NEB 2.5 MG/3 ML INH INHALATION ×3 (09:23→20:37)
--- NOTE | 2022-12-14 11:10 | PM.IMPN ---
Progress Note: A&P Assessment and Plan (1) Pneumonia: Code(s): J18.9 - Pneumonia, unspecified organism Status: Acute Assessment and Plan: Patient with known multiple allergies to penicillins, cephalosporins and fluoroquinolones, unsure of severity or type of reaction at this time 12/13: Started on doxycycline at admission on 12/11, was on it for 3 days prior to admission, started 12/08 outpatient, today is day 6 of abx, improving symptoms, switch to oral 12/13, anticipate end date to be 12/14 12/14: Day 7 of abx with doxycycline (2) Hypoxia: Code(s): R09.02 - Hypoxemia Status: Acute Assessment and Plan: Wean oxygen as tolerated, currently satting 96% on 2L nc Home O2 eval ordered, report pending [facility] showed significant desatting on 2L O2 overnight, will consult pulm for outptient PSG/CPAP, titrate home nocturnal O2 needs appropriately 12/14: Will check [facility] tonight on 3-4 L of oxygen, anticipate discharge home tomorrow, will need outpatient polysomnography and likely CPAP, home O2 eval for oxygen in the meantime (3) Fatigue: Code(s): R53.83 - Other fatigue Status: Acute Assessment and Plan: Likely secondary to acute illness PT OT ordered, recommending outpatient therapy (4) Chronic GERD: Code(s): K21.9 - Gastro-esophageal reflux disease without esophagitis Status: Acute Assessment and Plan: PPI (5) Chronic back pain greater than 3 months duration: Code(s): M54.9 - Dorsalgia, unspecified; G89.29 - Other chronic pain Status: Acute Assessment and Plan: Tylenol as needed (6) Essential (primary) hypertension: Code(s): I10 - Essential (primary) hypertension Status: Acute Assessment and Plan: Continue home meds Continue to monitor BP reviewed 12/14 (7) Diastolic dysfunction: Code(s): I51.89 - Other ill-defined heart diseases Status: Acute Assessment and Plan: Gentle diuresis with IV lasix 40 mg BID, BUN/creat slowly increasing, oxygen needs decreasing, will decrease diuresis to lasix 40 mg daily 12/13 Echocardiogram report showed an EF of greater than 70% with grade 2 diastolic dysfunction Patient does not appear to be on lasix at home, lasix 20 mg po daily started 12/15 Plan DVT prophylaxis with SCDs GI prophylaxis not indicated Code status full code Subjective Date/time seen: 12/14/22 11:10 Interval history: 77-year-old female past medical history significant for hypertension, hyperlipidemia and GERD is presenting from assisted living facility for cough, fever, shortness of breath and generalized weakness, found to have pneumonia and possible heart failure exacerbation and started on doxycycline and diuresis. No overnight events noted. No chest pain or shortness of breath. No nausea, vomiting or diarrhea. No fevers or chills. Patient states she feels much better than when she came in. She is nervous about going home with oxygen. Family is in the room, extensive discussion regarding suspected sleep apnea and need for nocturnal oxygen as well as oxygen with exertion and possibly even at rest during the day. Unable to assess if patient has had chronic hypoxia or this is an acute need from the pneumonia. Review of Systems Review of Systems: 12 point review of systems was assessed and was negative except as noted in the HPI Exam Narrative: General: No acute distress, alert and oriented per baseline HEENT: Atraumatic, normocephalic, mucous membranes moist CV: Regular rate and rhythm, S1, S2 Lungs: Clear to auscultation bilaterally, no wheeze Abdomen: Soft, nontender, nondistended Extremities: Normal to inspection, trace pitting edema bilaterally Skin: No rashes noted, no lesions or wounds seen Psych: Euthymic, normal affect Objective Data Vital Signs Vital Signs: Vital Signs - 24 hr 12/13/22 13:28 12/13/22 13:44 12/13/22 1
[2022-12-14] MEDS: ACETAMINOPHEN 500 MG TABLET 1000 MG PO ×2 (11:31→22:40)
--- NOTE | 2022-12-14 16:30 | PM.CNPUL ---
Assessment and Plan Assessment and plan (1) Pneumonia: Code(s): J18.9 - Pneumonia, unspecified organism Status: Acute Assessment and Plan: She was admitted Dec 11 with symptoms consistent with community acquired pneumonia including cough, sputum, shortness of breath, confusion Labs = leukocytosis 16 K, now lower 10.5K. She had a room air saturation 81% on room air in ER, has been on 2-3 L since arrival. She has been getting Lasix since admission, now has a mild contraction alkalosis, serum HCO3 increased to 34 from 27. BUN is higher 20, 14 on admission. I will give one dose of acetazolamide 250 mg po to eliminate some bicarbonate, normalize the pH. I am not going to get an ABG at this time. It is possible that her symptoms reflect diastolic dysfunction. She has hypertension, grade II diastolic dysfunction, EF 74%. I agree wth diuresis. (2) Hypoxia: Code(s): R09.02 - Hypoxemia Status: Acute Assessment and Plan: Has required O2 since admission, still require O2 at rest, 2 L/min. The patient is agreeable to using O2 at home, knows this might be temporary. We won't know until after she is discharge, adn we see her in follow up. Some people find out that they need O2 while in the Hospital for an episode such as this, and then further testing help to sort out who needs to continue using it. Might have some COPD with history of tobacco. She dropped to 88% immediately after O2 decreased to 1 L/min, so she is back on 2 L/min. (3) Secondary pulmonary arterial hypertension: Code(s): I27.21 - Secondary pulmonary arterial hypertension Status: Acute Assessment and Plan: Right ventricular systolic pressure on echo is 51 mmHg, ago quality was not excellent due to technical problems. she may have more underlying lung disease then we appreciate. She may also have an element of sleep apnea contributing to elevated pulmonary hypertension with nocturnal hypoxemia. Again this can be followed up after discharge. Plan Stop ipratropium nebulized; she has glaucoma. Anticholinergics can aggravate glaucoma. Continue oral doxycycline for 7 days total. She has no wheezing, and this may be due to albuterol nebulized. Will change this to p.r.n. Infiltrates can take several weeks to resolve radiographically. Chest CT without contrast to evaluate infiltrates or other findings that may change diagnosis and treatment Walk study before going home. [facility] tonight; she understands that this will not be sufficient to diagnose PRATIK or provide her with CPAP before going home. She will need a pulmonary office visit for evaluation as an outpatient for her sleep apnea symptoms. PFTs 4-6 weeks after discharge. She had a history of smoking, stopped at age 38 after 20 years. She may have COPD contributing to her O2 need. History of Present Illness History of Present Illness Consult date: 12/14/22 Requesting physician: Josefa Jacobsen DO Chief complaint: pneumonia, hypoxia Narrative: Patient was seen NEW: Krystina Lorenzo is a 77 year old woman with a diagnosis of pneumonia on 12/11 with a cough, shortness of breath, poor appetite, generalized weakness, chills, and night sweats.? Her daughter tells me that she was having confusion and seeing things prior to calling an ambulance on the day of admission, symptoms for 1 to 1.5 weeks before admission. Preliminary workup was significant for BNP of 1340, white count of 16.9, CXR with mild interstitial edema and she required O2, has been on 2-3 L /min since arrival. She was treated with doxycycline, as she has numerous antibiotic allergies. She has impro
[2022-12-14] MEDS: SERTRALINE HCL 50 MG TABLET 100 MG PO (20:18)
[2022-12-14] MEDS: acetaZOLAMIDE TAB 250 MG TABLET PO (20:21)
[2022-12-15] VITALS (11 sets, daily range): BP systolic 129–156; BP diastolic 57–68; PULSE 64–84; RESP 16–18; TEMP 35.7–36.3; O2SAT 84–97
--- NOTE | 2022-12-15 02:31 | PCRCNOTE ---
apnea study; 0200 neb tx omitted
[2022-12-15] MEDS: LEVOTHYROXINE SODIUM 75 MCG TABLET PO (05:38)
[2022-12-15 07:23] LABS: Basophils Absolute Auto 0.1 K/mm3 (0.0-0.1); Basophils Percent Auto 0.8 % (0.2-1.2); Eosinophils Absolute Auto 0.2 K/mm3 (0-0.3); Eosinophils Percent Auto 2.5 % (0-4.4); Hematocrit 37.6 % (37.0-47.0); Hemoglobin 11.5 g/dL (12.0-15.0); Immature Granulocyte Absolute 0.05 K/mm3 (0.00-0.031); Immature Granulocyte Percent A 0.5 % (0-0.5); Lymphocytes Absolute Auto 2.14 K/mm3 (0.9-3.2); Mean Corpuscular HGB Conc 30.6 g/dl (32-36); Mean Corpuscular Hemoglobin 25.5 pg (26-34); Mean Corpuscular Volume 83.4 fl (80-100); Mean Platelet Volume 10.8 fl (7.4-10.4); Monocytes Absolute Auto 0.7 K/mm3 (0.1-0.6); Monocytes Percent Auto 7.9 % (2.6-8.5); Neutrophils Absolute Auto 6.1 K/mm3 (1.3-6.7); Neutrophils Percent Auto 65.3 % (45.5-73.1); Platelet Count Result 329 k/mm3 (150-375); Red Blood Count 4.51 M/mm3 (4.2-5.4); White Blood Count 9.3 K/mm3 (4.5-10.0)
[2022-12-15 07:38] LABS: Alanine Aminotransferase 16 U/L (6-35); Albumin Level 3.8 g/dL (3.5-5.1); Alkaline Phosphatase 58 U/L (38-126); Anion Gap 6 mmol/L (8-16); Aspartate Amino Transferase 30 U/L (14-36); Bilirubin,Total 0.5 mg/dL (0.2-1.3); Blood Urea Nitrogen 19 mg/dL (7-17); Calcium 9.6 mg/dL (8.4-10.2); Carbon Dioxide 34 mmol/L (22-30); Chloride 100 mmol/L (98-107); Estimated CRCL calculation 52 ml/min; Estimated Glomerular Filt Rate > 60; Glucose 115 mg/dL (65-110); Potassium 3.2 mmol/L (3.4-5.0); Sodium 140 mmol/L (137-145)
[2022-12-15] MEDS: ASPIRIN 81 MG ENTERIC TABLET PO (08:03)
[2022-12-15] MEDS: DORZOLAMIDE/TIMOLOL OPHTH SOL 10 ML BOTTLE 1 DROP EACH EYE (08:03)
[2022-12-15] MEDS: SIMVASTATIN 20 MG TABLET 40 MG PO (08:03)
[2022-12-15] MEDS: LUBIPROSTONE 8 MCG CAPSULE PO (08:04)
[2022-12-15] MEDS: PANTOPRAZOLE 40 MG TABLET PO (08:04)
[2022-12-15] MEDS: amLODIPine BESYLATE 5 MG TABLET PO (08:04)
[2022-12-15] MEDS: FUROSEMIDE 20 MG TABLET PO (08:04)
[2022-12-15] MEDS: ALBUTEROL SULFATE NEB 2.5 MG/3 ML INH INHALATION (08:08)
--- NOTE | 2022-12-15 10:54 | HOMEO2EVAL ---
Evaluation was performed at [facility] Home Oxygen Evaluation RC: Home Oxygen (O2) Evaluation Start: 12/14/22 09:23 Freq: ONCE Status: Active Protocol: RPE Activity Type Activity Date Activity User E-sign Co-sign Detail Recorded Client Recorded Date Recorded By Document 12/15/22 10:41 [facility] [email or web address] 12/15/22 10:51 [facility] 12/15/22 10:41 Home O2 Evaluation [Oxygen] -Test Phase Resting -Oxygen Delivery Nasal Cannula -Oxygen Flow Rate (L/min) 1 -Fraction of Inspired Oxygen (%) 24 [Pulse Oximetry] -Pulse Oximetry (90-100 %) 94 [Pulse Rate] -Pulse Rate (60-100 beats/min) 81 [Evaluation] -Activity Tolerance Good -Rating of Perceived Dyspnea (PD) +1 Mild, Noticeable to the Participant but Not to an Observer -Rate of Perceived Exertion (PE) 11 Fairly light Query Text:Click the Protocol Button to View the RPE Scale [Exercise] -Ambulation Distance (feet) 0 -Ambulation Distance (meters) 0 [Comments] -Home Oxygen Evaluation Comments Patient returned to rest. RC: Home Oxygen (O2) Evaluation Start: 12/14/22 09:52 Freq: ONCE Status: Active Protocol: RPE Activity Type Activity Date Activity User E-sign Co-sign Detail Recorded Client Recorded Date Recorded By Document 12/15/22 10:33 [facility] [email or web address] 12/15/22 10:49 [facility] 12/15/22 10:33 Home O2 Evaluation [Oxygen] -Test Phase Resting -Oxygen Delivery Nasal Cannula -Oxygen Flow Rate (L/min) 1 -Fraction of Inspired Oxygen (%) 24 [Pulse Oximetry] -Pulse Oximetry (90-100 %) 93 [Pulse Rate] -Pulse Rate (60-100 beats/min) 72 [Evaluation] -Activity Tolerance Good -Rating of Perceived Dyspnea (PD) +2 Mild, Some Difficulty, Noticeable to the Observer -Rate of Perceived Exertion (PE) 9 Very light Query Text:Click the Protocol Button to View the RPE Scale [Exercise] -Ambulation Distance (feet) 0 -Ambulation Distance (meters) 0 [Comments] -Home Oxygen Evaluation Comments Pt was 87% on RA during rest, 1L NC initiated. SpO2 93% on RA at rest. [Charges] -Treatment Charges O2 Evaluation - Inpatient RC: Home Oxygen (O2) Evaluation Start: 12/15/22 09:12 Freq: ONCE Status: Active Protocol: RPE Activity Type Activity Date Activity User E-sign Co-sign Detail Recorded Client Recorded Date Recorded By Document 12/15/22 10:37 [facility] [email or web address] 12/15/22 10:50 [facility] 12/15/22 10:37 Home O2 Evaluation [Oxygen] -Test Phase Exercise -Oxygen Delivery Nasal Cannula -Oxygen Flow Rate (L/min) 1 -Fraction of Inspired Oxygen (%) 24 [Pulse Oximetry] -Pulse Oximetry (90-100 %) 94 [Pulse Rate] -Pulse Rate (60-100 beats/min) 84 [Evaluation] -Activity Tolerance Good -Rating of Perceived Dyspnea (PD) +2 Mild, Some Difficulty, Noticeable to the Observer -Rate of Perceived Exertion (PE) 14 Query Text:Click the Protocol Button to View the RPE Scale [Exercise] -Ambulation Distance (feet) 250 -Ambulation Distance (meters) 76.19 [Comments] -Home Oxygen Evaluation Comments Patient 93-94% on 1L NC during ambulation.
--- NOTE | 2022-12-15 12:39 | PM.IMPN ---
Progress Note: A&P Assessment and Plan (1) Pneumonia: Code(s): J18.9 - Pneumonia, unspecified organism Status: Acute Assessment and Plan: Patient with known multiple allergies to penicillins, cephalosporins and fluoroquinolones, unsure of severity or type of reaction at this time 12/13: Started on doxycycline at admission on 12/11, was on it for 3 days prior to admission, started 12/08 outpatient, today is day 6 of abx, improving symptoms, switch to oral 12/13, anticipate end date to be 12/14 12/14: Day 7 of abx with doxycycline (2) Hypoxia: Code(s): R09.02 - Hypoxemia Status: Acute Assessment and Plan: Wean oxygen as tolerated, currently satting 96% on 2L nc Home O2 eval ordered, report pending [facility] showed significant desatting on 2L O2 overnight, will consult pulm for outptient PSG/CPAP, titrate home nocturnal O2 needs appropriately 12/14: Will check [facility]nea[facility] tonight on 3-4 L of oxygen, anticipate discharge home tomorrow, will need outpatient polysomnography and likely CPAP, home O2 eval for oxygen in the meantime (3) Fatigue: Code(s): R53.83 - Other fatigue Status: Acute Assessment and Plan: Likely secondary to acute illness PT OT ordered, recommending outpatient therapy (4) Chronic GERD: Code(s): K21.9 - Gastro-esophageal reflux disease without esophagitis Status: Acute Assessment and Plan: PPI (5) Chronic back pain greater than 3 months duration: Code(s): M54.9 - Dorsalgia, unspecified; G89.29 - Other chronic pain Status: Acute Assessment and Plan: Tylenol as needed (6) Essential (primary) hypertension: Code(s): I10 - Essential (primary) hypertension Status: Acute Assessment and Plan: Continue home meds Continue to monitor BP reviewed 12/14 (7) Diastolic dysfunction: Code(s): I51.89 - Other ill-defined heart diseases Status: Acute Assessment and Plan: Gentle diuresis with IV lasix 40 mg BID, BUN/creat slowly increasing, oxygen needs decreasing, will decrease diuresis to lasix 40 mg daily 12/13 Echocardiogram report showed an EF of greater than 70% with grade 2 diastolic dysfunction Patient does not appear to be on lasix at home, lasix 20 mg po daily started 12/15 Plan DVT prophylaxis with SCDs GI prophylaxis not indicated Code status full code Subjective Date/time seen: 12/15/22 12:39 Interval history: 77-year-old female past medical history significant for hypertension, hyperlipidemia and GERD is presenting from assisted living facility for cough, fever, shortness of breath and generalized weakness, found to have pneumonia and possible heart failure exacerbation and started on doxycycline and diuresis. No overnight events noted. No chest pain or shortness of breath. No nausea, vomiting or diarrhea. No fevers or chills. Patient states she feels much better than when she came in. She is nervous about going home with oxygen. Family is in the room, extensive discussion regarding suspected sleep apnea and need for nocturnal oxygen as well as oxygen with exertion and possibly even at rest during the day. Unable to assess if patient has had chronic hypoxia or this is an acute need from the pneumonia. Exam Narrative: General: No acute distress, alert and oriented per baseline HEENT: Atraumatic, normocephalic, mucous membranes moist CV: Regular rate and rhythm, S1, S2 Lungs: Clear to auscultation bilaterally, no wheeze Abdomen: Soft, nontender, nondistended Extremities: Normal to inspection, trace pitting edema bilaterally Skin: No rashes noted, no lesions or wounds seen Psych: Euthymic, normal affect Objective Data Vital Signs Vital Signs: Vital Signs - 24 hr 12/14/22 13:17 12/14/22 13:40 12/14/22 13:57 Temperature 98.9 F Pulse Rate 75 87 87 Respiratory Rate 16 18 18 Blood Pressure 134/55 L Pulse Oximetry 97 Oxy
--- NOTE | 2022-12-15 12:43 | PM.DS ---
DS: Admitting Diagnosis Discharge Date 12/15/22 Admitting Diagnosis sob DS: Discharge Diagnosis Discharge Diagnosis (1) Pneumonia: Code(s): J18.9 - Pneumonia, unspecified organism Status: Acute Assessment and Plan: Patient with known multiple allergies to penicillins, cephalosporins and fluoroquinolones, unsure of severity or type of reaction at this time 12/13: Started on doxycycline at admission on 12/11, was on it for 3 days prior to admission, started 12/08 outpatient, today is day 6 of abx, improving symptoms, switch to oral 12/13, anticipate end date to be 12/14 12/14: Day 7 of abx with doxycycline (2) Hypoxia: Code(s): R09.02 - Hypoxemia Status: Acute Assessment and Plan: Wean oxygen as tolerated, currently satting 96% on 2L nc Home O2 eval ordered, report pending [facility] showed significant desatting on 2L O2 overnight, will consult pulm for outptient PSG/CPAP, titrate home nocturnal O2 needs appropriately 12/14: Will check ApneaLink tonight on 3-4 L of oxygen, anticipate discharge home tomorrow, will need outpatient polysomnography and likely CPAP, home O2 eval for oxygen in the meantime (3) Fatigue: Code(s): R53.83 - Other fatigue Status: Acute Assessment and Plan: Likely secondary to acute illness PT OT ordered, recommending outpatient therapy (4) Chronic GERD: Code(s): K21.9 - Gastro-esophageal reflux disease without esophagitis Status: Acute Assessment and Plan: PPI (5) Chronic back pain greater than 3 months duration: Code(s): M54.9 - Dorsalgia, unspecified; G89.29 - Other chronic pain Status: Acute Assessment and Plan: Tylenol as needed (6) Essential (primary) hypertension: Code(s): I10 - Essential (primary) hypertension Status: Acute Assessment and Plan: Continue home meds Continue to monitor BP reviewed 12/14 (7) Diastolic dysfunction: Code(s): I51.89 - Other ill-defined heart diseases Status: Acute Assessment and Plan: Gentle diuresis with IV lasix 40 mg BID, BUN/creat slowly increasing, oxygen needs decreasing, will decrease diuresis to lasix 40 mg daily 12/13 Echocardiogram report showed an EF of greater than 70% with grade 2 diastolic dysfunction Patient does not appear to be on lasix at home, lasix 20 mg po daily started 12/15 Plan DVT prophylaxis with SCDs GI prophylaxis not indicated Code status full code DS: Summary Hospital Course Hospital Course: 37-year-old female past medical history significant for hypertension and GERD from assisted living facility was brought in for cough and shortness of breath. Echo was performed showing LVH with grade 2 diastolic dysfunction and EF greater than 70%, no significant valvular abnormalities nor pulmonary hypertension were noted. She was found to have pneumonia on chest x-ray and placed on doxycycline to complete a 7 day course. She was noted to be hypoxic on room air throughout her stay, even once completing antibiotics. This was thought to be secondary to heart failure and possibly underlying sleep apnea. She did receive gentle IV diuresis and improved significantly, therefore she was discharged on Lasix 20 mg orally. She will follow-up with pulmonology for sleep study and further care. She was discharged on home oxygen. See above and med rec for details. Time Spent with Patient Time attestation: Total time spent providing and/or coordinating discharge services: Exam Narrative: General: No acute distress, alert and oriented per baseline HEENT: Atraumatic, normocephalic, mucous membranes moist CV: Regular rate and rhythm, S1, S2 Lungs: Clear to auscultation bilaterally, no wheeze Abdomen: Soft, nontender, nondistended Extremities: Normal to inspection, trace pitting edema bilaterally Skin: No rashes noted, no lesions or wounds seen Psych: Euthymic, normal affect DS: Teodoro
--- NOTE | 2022-12-15 13:28 | PM.PNPUL ---
Progress Note: A&P Assessment and Plan (1) Pneumonia: Code(s): J18.9 - Pneumonia, unspecified organism Status: Acute Assessment and Plan: She was admitted Dec 11 with symptoms consistent with community acquired pneumonia including cough, sputum, shortness of breath, confusion; symptoms are much improved. WBC is now 9.3K down from 16 K. No fever. Home O2 study = 1 L/min O2 with rest and exertion. She received one dose acetazolamide 250 mg for mild contraction alkalosis due to Lasix. Serum HCO3 is still elevated, 34. This will correct itself at home. It is possible that her symptoms reflect diastolic dysfunction. She has hypertension, grade II diastolic dysfunction, EF 74%. (2) Hypoxia: Code(s): R09.02 - Hypoxemia Status: Acute Assessment and Plan: Has required O2 since admission, O2 need is lower, 1 L/min rest and exertion. We won't know until after she is discharged if she will continue to need this an an outpatient. She may have some COPD with history of tobacco. (3) Secondary pulmonary arterial hypertension: Code(s): I27.21 - Secondary pulmonary arterial hypertension Status: Acute Assessment and Plan: Right ventricular systolic pressure on echo is 51 mmHg, ago quality was not excellent due to technical problems. she may have more underlying lung disease then we appreciate. She may also have an element of sleep apnea contributing to elevated pulmonary hypertension with nocturnal hypoxemia. Again this can be followed up after discharge. Plan Ok to go home today. no ipratropium nebulized; she has glaucoma. p.r.n. albuterol; continue oral doxycycline for [address] today without contrast = radiology report is pending. I do not see anything surprising. She has resolving basilar infiltrates.. Infiltrates can take several weeks to resolve radiographically. Home O2 study shows that she needs O2 at 1 L/min at rest and with exertion; walked 250 feet [facility] last night on 2 L/min = saturation ranged from 90-100%. This will not be sufficient to diagnose PRATIK or provide her with CPAP before going home. She will need a pulmonary office visit for evaluation as an outpatient for her sleep apnea symptoms. PFTs 4-6 weeks after discharge. She had a history of smoking, stopped at age 38 after 20 years. She may have COPD contributing to her O2 need. Subjective Date/time seen: 12/15/22 13:28 Interval history: hospital follow up : pneumonia, hypoxemia. 12/15/2022 : she feels better today; SHe is less short of breath. She is reclining in bed with amplifiers on, watching the news. She had [facility]nea[facility] last night and Home O2 evaluation today. ApneaLink was 6 hr 40 minutes, on 2 L/min saturation ranged from 90% to 100%. AHI was 2.3. This is in the normal range. The O2 lowered the AHI. When she is tested as an outpatient, she will start on room air. Home O2 evaluation shows need for 1 L/min with rest and exertion. I recommend 2 L/min with sleep. d/w dr Jacobsen. - - - - - - - - Krystina Lorenzo is a 77 year old woman with a diagnosis of? pneumonia on 12/11 with a cough, shortness of breath, poor appetite, generalized weakness, chills, and night sweats.? Her daughter tells me that she was having confusion and seeing things prior to calling an ambulance on the day of admission, symptoms for 1 to 1.5 weeks before admission.? Preliminary workup was significant for BNP of 1340, white count of 16.9, CXR with mild interstitial edema and she required O2, has been on 2-3 L /min since arrival.? She was treated with doxycycline, as she has numerous antibiotic allergies.? She has improv
== END 2022-12-15 15:00 | DRG 195 ==
LOC: ANHED 21:19 → ANH3MEDSUR 21:33
PROVIDERS: Admitting Provider Internal Medicine; Emergency Provider Emergency Medicine; PCP Family Medicine; Visit Provider Student in an Organized Health Care Education/Training Program
DX: J18.9 Pneumonia, unspecified organism (principal); D64.9 Anemia, unspecified; E03.9 Hypothyroidism, unspecified; E78.5 Hyperlipidemia, unspecified; F32.A Depression, unspecified; G47.30 Sleep apnea, unspecified; G89.29 Other chronic pain; H40.9 Unspecified glaucoma; I11.9 Hypertensive heart disease without heart failure; I27.21 Secondary pulmonary arterial hypertension; K21.9 Gastro-esophageal reflux disease without esophagitis; M81.0 Age-related osteoporosis without current pathological fracture; M54.9 Dorsalgia, unspecified; R09.02 Hypoxemia; Z86.16 Personal history of COVID-19; Z20.822 Contact with and (suspected) exposure to COVID-19; Z87.891 Personal history of nicotine dependence; Z85.828 Personal history of other malignant neoplasm of skin; Z90.710 Acquired absence of both cervix and uterus; Z90.49 Acquired absence of other specified parts of digestive tract; Z79.82 Long term (current) use of aspirin; Z88.0 Allergy status to penicillin; Z96.649 Presence of unspecified artificial hip joint
CPT/HCPCS: 36415; 71045; 71250; 80053; 83605; 83880; 85025; 85055; 87636; 94618; 94640; 94762; 96365; 96372; 97110; 97116; 97161; 97165; 97530; 97535; 99285; A9270; C8929; G0378; J1940; Q9957

== ENCOUNTER 2023-01-24 08:06 | Outpatient (CLI) | payer MEDICARE, MEDICAID, SELFPAY ==
--- NOTE | 2023-02-18 09:35 | WPDSLEEPSTUD ---
Sleep Study Date of Study: 01/24/23 Ordering Provider: COURTNEY Locke Interpreting Physician: Rebeka Barton DO Sleep Study Type: Split Polysomnogram Height: 1.63 m Weight: 77.564 kg Body Mass Index: 29.3 Neck Circumference (inches): 15 Driver: 21 Reason for Sleep Study Daytime hypersomnia. Patient states she is not able to sleep well, wakes up after 2 or 3 hours of sleep, and feels tired during the day. Sleep History Patient is a 77yo F with history of hypertension, GERD, glaucoma, pulmonary hypertension, and diastolic dysfunction presents to the sleep lab for a split night study for evaluation of poor sleep and daytime hypersomnia. She constantly awakens from sleep short of breath. She constantly awakens at night with heartburn, belching or cough.? She constantly snores and snores loudly enough that others complain. She frequently has trouble sleeping when she has a cold. She occasionally suddenly wakes up gasping for breath during the night. She frequently has breathing problems at night. She constantly sweats excessively at night. She occasionally notices her heart pounding or beating irregularly during the night. She constantly falls asleep during the day. She constantly falls asleep involuntarily and occasionally falls asleep while driving. She occasionally experiences loss of muscle tone with strong emotion. She occasionally feels paralyzed on waking or falling asleep. She never experiences vivid dreams upon waking or falling asleep. She does not feel afraid of going to sleep. She occasionally has nightmares. She occasionally recalls her dreams. She rarely has thoughts racing through her mind. She rarely feels sad or depressed. She rarely feels anxiety or worry about things. She occasionally notices parts of her body jerk. She occasionally kicks during the night. She frequently feels crawling or aching feelings in her legs. She frequently feels leg pain at night. She rarely grinds her teeth during sleep and never has morning jaw pain. She constantly feels bothered by pain during the day and is occasionally awakened by pain during the night. She constantly wakes up feeling stiff, sore, and achy in the morning with pain in her neck, spine, or joints. Normal bedtime is around 10 pm on the weekdays and 11 pm on the weekends, taking 1 hour to fall asleep. She typically gets about 2 to 3 hours of perceived sleep per night. Her wake up time is around 7am on the weekdays and 10 am on the weekends. She typically wakes up around 2 to 3 times per night, awake 4 to 5 hours and she will watch TV, go to the bathroom. She often watches TV before falling asleep. She takes naps in the afternoon or evening and feels refreshed after a short 10 to 15 minute nap. Habits:? She smoked tobacco less than 1ppd for about 20 years and quit smoking in her 40s. Caffeine use is about 3 cups of tea per day. No alcohol or recreational substances. [facility] Past Medical History Medical History (Updated 02/18/23 @ 09:48 by Rebeka Barton DO) Acid reflux Anemia Anxiety Cataract fragments in both eyes following surgery Depression Glaucoma High cholesterol Hypothyroidism Osteoporosis Pelvic organ prolapse quantification stage 1 rectocele Skin cancer of forehead Vaginal atrophy Surgical History Surgical History H/O hysterectomy with oophorectomy H/O shoulder surgery History of bladder surgery History of hip replacement Hx of cholecystectomy Family History Family History Mother Family history of coronary artery disease Family history of cardiovascular disease Sibling Diabetes mellitus Cerebrovascular accident Family history of malignant neoplasm of urinary bladder Family history of thyroid disease Family history of blood dyscrasia Asthma Family history of hearing loss Father Patient's father is
[2023-02-18 09:49] VITALS: BMI 29.3
== END 2023-01-25 07:34 | disposition home or self-care (01) ==
LOC: ANHCSM 08:07
PROVIDERS: PCP Family Medicine; Visit Provider Physician Assistant
DX: G47.10 Hypersomnia, unspecified (principal); G47.33 Obstructive sleep apnea (adult) (pediatric); I49.3 Ventricular premature depolarization
CPT/HCPCS: 95811

== ENCOUNTER 2023-01-31 10:10 | Outpatient (CLI) | payer MEDICARE, MEDICAID, SELFPAY ==
[2023-01-31 10:00] VITALS: PULSE 70; O2SAT 87
[2023-01-31 10:05] VITALS: PULSE 71; O2SAT 88
[2023-01-31 10:10] VITALS: PULSE 72; O2SAT 91
[2023-01-31 10:15] VITALS: PULSE 89; O2SAT 88
[2023-01-31 10:20] VITALS: PULSE 89; O2SAT 90
[2023-01-31 10:30] VITALS: PULSE 72; O2SAT 91
--- NOTE | 2023-01-31 11:25 | HOMEO2EVAL ---
Evaluation was performed at [facility] Home Oxygen Evaluation RC: Home Oxygen (O2) Evaluation Start: 01/31/23 11:22 Freq: Status: Active Protocol: RPE Activity Type Activity Date Activity User E-sign Co-sign Detail Recorded Client Recorded Date Recorded By Document 01/31/23 10:00 [facility] [email or web address] 01/31/23 11:25 DJO Document 01/31/23 10:05 DJO [email or web address] 01/31/23 11:25 DJO Document 01/31/23 10:10 DJO [email or web address] 01/31/23 11:25 DJO Document 01/31/23 10:15 [email or web address] [email or web address] 01/31/23 11:25 DJO Document 01/31/23 10:20 [email or web address] [email or web address] 01/31/23 11:25 DJO Document 01/31/23 10:30 DJO [email or web address] 01/31/23 11:25 DJO 01/31/23 01/31/23 01/31/23 10:00 10:05 10:10 Home O2 Evaluation [Oxygen] -Test Phase Resting Resting Resting -Oxygen Delivery Room Air Nasal Cannula Nasal Cannula -Oxygen Flow Rate (L/min) 1 2 [Pulse Oximetry] -Pulse Oximetry (90-100 %) 87 L 88 L 91 [Pulse Rate] -Pulse Rate (60-100 beats/min) 70 71 72 [Evaluation] -Activity Tolerance [Charges] -Treatment Charges O2 Evaluation - Outpatient 01/31/23 01/31/23 01/31/23 10:15 10:20 10:30 Home O2 Evaluation [Oxygen] -Test Phase Exercise Exercise Resting -Oxygen Delivery Nasal Cannula Nasal Cannula Nasal Cannula -Oxygen Flow Rate (L/min) 2 3 2 [Pulse Oximetry] -Pulse Oximetry (90-100 %) 88 L 90 91 [Pulse Rate] -Pulse Rate (60-100 beats/min) 89 89 72 [Evaluation] -Activity Tolerance Fair [Charges] -Treatment Charges
--- NOTE | 2023-01-31 12:45 | WPDPFTINT ---
PFT Procedure Performed PFT Procedure Performed Spirometry with Pre/Post Bronchodilator Plethysmography (Lung Vol) Diffusing Cap (DLCO) Flow Vol Loop PFT Interpretation This is a pulmonary function test with pre and post-bronchodilator spirometry, plethysmography and diffusing capacity. The test was performed and results interpreted in accordance with the 2019 and 2005 ATS/ERS Task Force guidelines respectively using the Global Lung Function Initiative-2012 reference equations. Patient demonstrated good effort and cooperation. Reproducibility criteria were met. The quality of the pre bronchodilator spirometry maneuver was Grade A and post bronchodilator spirometry maneuver was Grade A. Findings: Spirometry: The contour the inspiratory and expiratory flow tracing are normal. The pre bronchodilator FVC is 1.68 L, 63% predicted. The pre bronchodilator FEV1 is 1.38 L, 68% predicted. The pre bronchodilator FEV1: FVC ratio is 82%. The post bronchodilator FVC is 1.62 L, representing a 4% decrease. The post bronchodilator FEV1 is 1.27 L, representing an 8% decrease. The post bronchodilator FEV1: FVC ratio was 78%. Plethysmography: The total lung capacity is 4.42 L, 87% predicted. The functional residual capacity is 2.87 L, 98% predicted. The residual volume is 1.94 L, 83% predicted. Diffusing capacity: The diffusing capacity unadjusted for hemoglobin and carboxyhemoglobin is 12.2, 62% predicted. The diffusing capacity adjusted for alveolar volume is 5.27, 126% predicted Impression: The spirometry is normal without evidence of an obstructive abnormality. The lung volumes are normal without evidence of and restrictive abnormality. The FVC and FEV1 are moderately decreased without an obstructive or restrictive abnormality. This is an abnormal but nonspecific finding. There is no significant improvement after inhaling a single dose of albuterol. The diffusing capacity unadjusted for hemoglobin and carboxyhemoglobin is mildly decreased and normalizes when adjusted for alveolar volume. There are no prior studies for comparison
== END 2023-01-31 10:11 | disposition home or self-care (01) ==
PROVIDERS: PCP Family Medicine; Visit Provider Physician Assistant
DX: R06.09 Other forms of dyspnea (principal); R09.02 Hypoxemia
CPT/HCPCS: 94060; 94618; 94726; 94729

== ENCOUNTER 2023-04-28 09:59 | Emergency (ER) | payer MEDICARE, MEDICAID, SELFPAY ==
--- NOTE | ~2023-04-28 | XR_ITS ---
Left Forearm AP and lateral views of the left forearm were performed. Clinical History: Pain Findings: No fracture or dislocation is seen. Osseous alignment in anatomic. Joint spaces are prese rved. Soft tissues are unremarkable. Impression: Unremarkable exam. Reviewed, dictated and finalized at location M. Impression: Unremarkable exam.
--- NOTE | ~2023-04-28 | XR_ITS ---
EXAMINATION: XR hand LT min 3V DATE: 04/28/2023 10:45 INDICATION: Left hand tenderness. TECHNIQUE: 3 views of left hand were obtained. COMPARISON: None. FINDINGS: Bone alignment is normal. No fracture. There is moderate osteoarthritis of first carpometac arpal joint and mild osteoarthritis of first metacarpophalangeal joint and some of the interphalangea l joints. IMPRESSION: 1. Polyarticular osteoarthritis. Reviewed, dictated and finalized at location A.
[2023-04-28 10:11] VITALS: BP 139/41; PULSE 73; RESP 12; TEMP 36.2; O2SAT 95
--- NOTE | 2023-04-28 10:29 | ED.GENADULT ---
HPI - General Adult General Chief complaint: Extremity Injury, Upper Stated complaint: Left Side Body Pain Time Seen by Provider: 04/28/23 10:29 Source: patient, RN notes reviewed and old records reviewed Mode of arrival: ambulatory Limitations: no limitations History of Present Illness HPI narrative: 78-year-old female presents to the [facility] with complaints of left distal forearm and dorsal hand pain after tripping over her oxygen tubing 20 April 2023 (8 days ago). Patient states she tripped landing on her left arm. Denies hitting head. Denies any loss of consciousness. Denies having chest pain or shortness of breath at the time of injury. Patient wears 3 L of oxygen Onset (ago): day(s) (8) Related Data Home Medications Medication Instructions Recorded Confirmed amlodipine 5 mg tablet 5 mg PO DAILY 07/16/19 04/28/23 aspirin 81 mg tablet,delayed 81 mg PO DAILY 07/16/19 04/28/23 release (Adult Low Dose Aspirin) lubiprostone 8 mcg capsule 8 mcg PO BID 07/16/19 04/28/23 (Amitiza) kiumfoxn-jmbnimsyy-zxqfyykd 3.5 1 drop ophthalmic (eye) BID 07/16/19 04/28/23 mg/mL-10,000 unit/mL-0.1% eye drops (Maxitrol) dorzolamide 22.3 mg-timolol 6.8 1 drp EACH EYE BID 08/29/21 04/28/23 mg/mL eye drops meloxicam 7.5 mg tablet 7.5 mg PO DAILY 08/29/21 04/28/23 sertraline 100 mg tablet 100 mg PO HS 08/29/21 04/28/23 acetaminophen 500 mg tablet 500 mg PO Q6H PRN Pain, Moderate 12/12/22 04/28/23 ibuprofen 800 mg tablet 800 mg PO TID PRN Pain (Scale 12/12/22 04/28/23 Score 7-10) lisinopril 5 mg tablet 5 mg PO DAILY 03/26/23 04/28/23 Allergies Allergy/AdvReac Type Severity Reaction Status Date / Time amoxicillin Allergy Severe HIVES Verified 04/28/23 10:02 ampicillin Allergy Unknown Other Verified 04/28/23 10:02 azithromycin Allergy Unknown Other Verified 04/28/23 10:02 carisoprodol Allergy Unknown Other Verified 04/28/23 10:02 celecoxib Allergy Unknown Other Verified 04/28/23 10:02 ciprofloxacin Allergy Unknown Other Verified 04/28/23 10:02 codeine Allergy Unknown Other Verified 04/28/23 10:02 erythromycin base Allergy Unknown Nausea Verified 04/28/23 10:02 morphine Allergy Unknown Other Verified 04/28/23 10:02 Penicillins Allergy Unknown Other Verified 04/28/23 10:02 Review of Systems Review of Systems: All systems reviewed & are unremarkable except as noted in HPI and below Constitutional: Constitutional: Reports no additional constitutional complaints Eyes: Eyes: Reports no additional eye complaints ENT: Reports system reviewed and no additional complaints, except as documented Cardiovascular: Cardiovascular: Reports no additional cardiovascular complaints, Denies chest pain and Denies dyspnea Respiratory: Respiratory: Reports no additional respiratory complaints, Denies chest congestion, Denies cough and Denies dyspnea Gastrointestinal: Gastrointestinal: Reports no additional gastrointestinal complaints, Denies abdominal pain, Denies nausea and Denies vomiting Musculoskeletal: Musculoskeletal: Reports as per HPI, Reports arthralgias and Reports joint swelling Integumentary/Breasts: Skin/Breast: Reports system reviewed and no additional complaints, except as docu Neurologic: Reports system reviewed and no additional complaints, except as documented Psychiatric: Psychiatric: Reports no additional psychiatric complaints Allergic/Immunologic: Allergic/Immunologic: Reports no additional allergic/immunologic complaints [facility] Past Medical History Medical History (Updated 04/28/23 @ 10:50 by Rita Donnelly APRN) Acid reflux Anemia Anxiety Cataract fragments in both eyes following surgery Depression Glaucoma High cholesterol Hypothyroidism Osteoporosis Pelvic organ prolapse quantification stage 1 rectocele Skin cancer of forehead Vaginal atrophy Surgical History Surgical History H/O hysterectomy with oophorectomy H/O shoulder surgery Histo
== END 2023-04-28 10:56 | disposition home or self-care (01) ==
PROVIDERS: Emergency Provider Nurse Practitioner; PCP Family Medicine
DX: M79.632 Pain in left forearm (principal); M79.642 Pain in left hand; W18.09XA Striking against other object with subsequent fall, initial encounter; K21.9 Gastro-esophageal reflux disease without esophagitis; H40.9 Unspecified glaucoma; E78.00 Pure hypercholesterolemia, unspecified; E03.9 Hypothyroidism, unspecified; M81.0 Age-related osteoporosis without current pathological fracture; Z85.828 Personal history of other malignant neoplasm of skin; Z87.891 Personal history of nicotine dependence; F41.9 Anxiety disorder, unspecified; F32.A Depression, unspecified; Z79.82 Long term (current) use of aspirin
CPT/HCPCS: 73090; 73130; 99213; G0463

== ENCOUNTER 2023-08-05 13:46 | Outpatient (CLI) | payer MEDICARE, MEDICAID, SELFPAY | END 2023-08-05 13:47 | disposition home or self-care (01) | LOC: ANHAUDIO 13:46 | PROVIDERS: PCP Family Medicine; Visit Provider Family Medicine | DX: H91.93 Unspecified hearing loss, bilateral (principal) | CPT/HCPCS: 92557; 92567 ==

== ENCOUNTER 2024-02-16 12:00 | Emergency (ER) | payer MEDICARE, MEDICAID, SELFPAY ==
--- NOTE | ~2024-02-16 | XR_ITS ---
XR wrist RT min 3V 02/16/2024 14:59 Indication: Status post fall. Right wrist bruising. Procedure: 4 views right wrist Comparison: No prior studies for comparison. Findings: There is polyarticular osteoarthritis. Osteopenia. No fracture or traumatic malalignment. N o foreign bodies. Impression: 1: No acute fracture. Reviewed, dictated and finalized at location A. Impression: 1: No acute fracture.
--- NOTE | ~2024-02-16 | CT_ITS ---
EXAMINATION: CT cervical spine wo con DATE: 02/16/2024 15:00 INDICATION: Neck pain after fall TECHNIQUE: Computed tomography (CT) of the cervical spine was performed without intravenous contrast. The dose-length product was 411 mGy-cm. Automated exposure control and iterative reconstruction tech nique were employed. COMPARISON: None FINDINGS: There is disc narrowing and endplate hypertrophy at C3-4, C4-5 and C6-7. There are prominen t dorsal osteophytes at C4-5. Craniovertebral junction is normal. There is dextroscoliosis. There is multilevel uncinate and facet hypertrophy. Lung apices are unremarkable. No acute fracture or traumat ic malalignment. IMPRESSION: 1. No acute abnormality of the cervical spine. 2: Severe cervical spondylosis. Reviewed, dictated and finalized at location A.
--- NOTE | ~2024-02-16 | CT_ITS ---
EXAMINATION: CT BRAIN W/O DATE: 02/16/2024 15:00 INDICATION: Status post fall. Forehead bruise. TECHNIQUE: Computed tomography (CT) of the head was performed without intravenous contrast. The dose- length product was 681.00 mGy-cm. Automated exposure control and iterative reconstruction technique w ere employed. COMPARISON: No prior studies for comparison. FINDINGS: Generalized atrophy. There are scattered mild periventricular and subcortical white matter changes, most likely related to small vessel ischemic disease (microangiopathy). No acute infarction, hemorrhage, mass or mass effect. There is intracranial atherosclerosis. No ventriculomegaly or midline shift. Midline sagittal images demonstrate a normal corpus callosum, c raniovertebral junction and sella turcica. Basilar cisterns are patent. Paranasal sinuses and mastoids are pneumatized. No depressed skull fractures. IMPRESSION: 1. No acute intracranial abnormality. Reviewed, dictated and finalized at location A.
[2024-02-16 12:01] VITALS: BP 134/87; PULSE 75; RESP 20; TEMP 36.2; O2SAT 94
[2024-02-16 12:45] VITALS: BP 145/64; PULSE 73; RESP 15; O2SAT 96
--- NOTE | 2024-02-16 14:24 | ED.GENADULT ---
HPI - General Adult General Chief complaint: Extremity Injury, Upper Stated complaint: Fall, R hand injury Time Seen by Provider: 02/16/24 13:18 Source: patient Mode of arrival: ambulatory Limitations: no limitations History of Present Illness HPI narrative: This is a 79-year-old female with PMH of HLD, HTN, PAH who presents to the ED for chief complaint of a fall that occurred yesterday evening around 2130. Patient reports that she was walking through and accidentally stumbled over her oxygen tubing. Patient is here with her family member who was concerned the patient may have broken her right hand. Reports pain and swelling to the right 2nd metacarpal area. Patient states that taking ibuprofen earlier did help a little bit. Denies any further sites of pain or injury. Patient did hit her head and has a small abrasion to the right forehead. Denies LOC, numbness, weakness. The patient and family deny any confusion or altered mental status. Related Data Home Medications Medication Instructions Recorded Confirmed amlodipine 5 mg tablet 5 mg PO DAILY 07/16/19 04/28/23 aspirin 81 mg tablet,delayed 81 mg PO DAILY 07/16/19 04/28/23 release (Adult Low Dose Aspirin) lubiprostone 8 mcg capsule 8 mcg PO BID 07/16/19 04/28/23 (Amitiza) vlwzecis-xhoxdesev-ghiaqggv 3.5 1 drop ophthalmic (eye) BID 07/16/19 04/28/23 mg/mL-10,000 unit/mL-0.1% eye drops (Maxitrol) dorzolamide 22.3 mg-timolol 6.8 1 drp EACH EYE BID 08/29/21 04/28/23 mg/mL eye drops meloxicam 7.5 mg tablet 7.5 mg PO DAILY 08/29/21 04/28/23 sertraline 100 mg tablet 100 mg PO HS 08/29/21 04/28/23 acetaminophen 500 mg tablet 500 mg PO Q6H PRN Pain, Moderate 12/12/22 04/28/23 ibuprofen 800 mg tablet 800 mg PO TID PRN Pain (Scale 12/12/22 04/28/23 Score 7-10) lisinopril 5 mg tablet 5 mg PO DAILY 03/26/23 04/28/23 ferrous sulfate 325 mg (65 mg 325 mg PO DAILY 06/05/23 iron) tablet (FeroSul) alprazolam 0.5 mg tablet 0.5 mg PO BID PRN 07/08/23 azelastine 0.05 % eye drops 1 drp EACH EYE BID 07/08/23 diclofenac sodium 1 % topical gel 2 g topical ONCE 07/08/23 latanoprost 0.005 % eye drops 1 drp EACH EYE QPM 07/08/23 Allergies Allergy/AdvReac Type Severity Reaction Status Date / Time amoxicillin Allergy Severe HIVES Verified 02/16/24 12:09 ampicillin Allergy Unknown Other Verified 02/16/24 12:09 azithromycin Allergy Unknown Other Verified 02/16/24 12:09 carisoprodol Allergy Unknown Other Verified 02/16/24 12:09 celecoxib Allergy Unknown Other Verified 02/16/24 12:09 ciprofloxacin Allergy Unknown Other Verified 02/16/24 12:09 codeine Allergy Unknown Other Verified 02/16/24 12:09 erythromycin base Allergy Unknown Nausea Verified 02/16/24 12:09 morphine Allergy Unknown Other Verified 02/16/24 12:09 Penicillins Allergy Unknown Other Verified 02/16/24 12:09 Review of Systems Review of Systems: All systems as dictated in [facility] Past Medical History Medical History (Updated 02/16/24 @ 15:33 by Paul Mcdonald PA-C) Acid reflux Anemia Anxiety Cataract fragments in both eyes following surgery Depression Glaucoma High cholesterol Hypothyroidism Osteoporosis Pelvic organ prolapse quantification stage 1 rectocele Skin cancer of forehead Vaginal atrophy Surgical History Surgical History H/O hysterectomy with oophorectomy H/O shoulder surgery History of bladder surgery History of hip replacement Hx of cholecystectomy Family History Family History Mother Family history of coronary artery disease Family history of cardiovascular disease Sibling Diabetes mellitus Cerebrovascular accident Family history of malignant neoplasm of urinary bladder Family history of thyroid disease Family history of blood dyscrasia Asthma Family history of hearing loss Father Patient's father is Sibling
[2024-02-16] MEDS: ACETAMINOPHEN 325 MG TABLET 650 MG PO (15:42)
[2024-02-16] MEDS: IBUPROFEN 600 MG TABLET PO (15:42)
[2024-02-16 15:45] VITALS: BP 155/64; PULSE 76; RESP 15; O2SAT 95
[2024-02-16 15:58] VITALS: BP 155/64; PULSE 67; RESP 15; TEMP 36.4; O2SAT 96
== END 2024-02-16 16:00 | disposition home or self-care (01) ==
PROVIDERS: Emergency Provider Physician Assistant; PCP Family Medicine
DX: S69.91XA Unspecified injury of right wrist, hand and finger(s), initial encounter (principal); E78.00 Pure hypercholesterolemia, unspecified; E03.9 Hypothyroidism, unspecified; K21.9 Gastro-esophageal reflux disease without esophagitis; M81.0 Age-related osteoporosis without current pathological fracture; H40.9 Unspecified glaucoma; H59.023 Cataract (lens) fragments in eye following cataract surgery, bilateral; F32.A Depression, unspecified; F41.9 Anxiety disorder, unspecified; Z96.649 Presence of unspecified artificial hip joint; Z85.828 Personal history of other malignant neoplasm of skin; Z86.2 Personal history of diseases of the blood and blood-forming organs and certain disorders involving the immune mechanism; Z87.891 Personal history of nicotine dependence; Z90.710 Acquired absence of both cervix and uterus; Z90.49 Acquired absence of other specified parts of digestive tract; M47.812 Spondylosis without myelopathy or radiculopathy, cervical region; Z79.899 Other long term (current) drug therapy; Z79.82 Long term (current) use of aspirin; W18.09XA Striking against other object with subsequent fall, initial encounter
CPT/HCPCS: 29125; 70450; 72125; 73110; 99284; A9270

== ENCOUNTER 2024-03-05 13:34 | Emergency (ER) | payer MEDICARE, MEDICAID, SELFPAY ==
[2024-03-05 13:48] VITALS: BP 125/46; PULSE 70; RESP 20; TEMP 36.7; O2SAT 90
--- NOTE | 2024-03-05 14:08 | ED.EAR ---
HPI - Ear Problem General Chief complaint: Ear Stated complaint: fluid in right ear Time Seen by Provider: 03/05/24 13:51 Source: patient, family (daughter) and RN notes reviewed Mode of arrival: ambulatory Limitations: no limitations History of Present Illness HPI Narrative: Patient presents today complaining of fluid in her right ear. She was seen at the electronic warfare technician office yesterday and was unable to hear well out of her right ear even with new hearing aids. The electronic warfare technician told her and her daughter that she had some fluid behind her ear drum and needed to be seen for it. Patient does report some mild pain, but cannot verbalize how long it has been present. Related Data Home Medications Medication Instructions Recorded Confirmed aspirin 81 mg tablet,delayed 81 mg PO DAILY 07/16/19 02/24/24 release (Adult Low Dose Aspirin) lubiprostone 8 mcg capsule 8 mcg PO BID 07/16/19 02/24/24 (Amitiza) orxjwfif-anaprdfki-stqgjnwm 3.5 1 drop ophthalmic (eye) BID 07/16/19 02/24/24 mg/mL-10,000 unit/mL-0.1% eye drops (Maxitrol) sertraline 100 mg tablet 100 mg PO HS 08/29/21 02/24/24 ibuprofen 800 mg tablet 800 mg PO TID PRN Pain (Scale 12/12/22 02/24/24 Score 7-10) lisinopril 5 mg tablet 5 mg PO DAILY 03/26/23 02/24/24 albuterol sulfate 90 mcg/actuation 1 inh inhalation Q4H 02/24/24 02/24/24 aerosol inhaler brimonidine 0.2 % eye drops 1 drp EACH EYE Q8H 02/24/24 02/24/24 multivit,Ca,iron,fnc-EB-qzzijk-lycopene-[id number] cap PO 02/24/24 02/24/24 3 mg-133 mcg-33 mcg cap netarsudil 0.02 % eye drops 1 drp EACH EYE QPM 02/24/24 02/24/24 (Rhopressa) oxybutynin chloride 5 mg 5 mg PO DAILY 02/24/24 02/24/24 tablet,extended release 24 hr tramadol 50 mg tablet 50 mg PO Q6H PRN 02/24/24 02/24/24 triamcinolone acetonide 0.5 % 1 applic topical DAILY 02/24/24 02/24/24 topical cream Allergies Allergy/AdvReac Type Severity Reaction Status Date / Time amoxicillin Allergy Severe HIVES Verified 03/05/24 13:36 ampicillin Allergy Unknown Other Verified 03/05/24 13:36 azithromycin Allergy Unknown Other Verified 03/05/24 13:36 carisoprodol Allergy Unknown Other Verified 03/05/24 13:36 celecoxib Allergy Unknown Other Verified 03/05/24 13:36 ciprofloxacin Allergy Unknown Other Verified 03/05/24 13:36 codeine Allergy Unknown Other Verified 03/05/24 13:36 erythromycin base Allergy Unknown Nausea Verified 03/05/24 13:36 morphine Allergy Unknown Other Verified 03/05/24 13:36 Penicillins Allergy Unknown Other Verified 03/05/24 13:36 Review of Systems Review of Systems: CONSTITUTIONAL: Denies body aches, fever, chills, or sweats. EYES: Denies visual changes, redness, or discharge. ENT: Denies rhinorrhea, congestion, sore throat. + right ear pain, muffling CARDIOVASCULAR: Denies chest pain, palpitations, or edema. RESPIRATORY: Denies cough or dyspnea. GASTROINTESTINAL: Denies abdominal pain, nausea, vomiting, or diarrhea. GENITOURINARY: Denies dysuria or hematuria. SKIN: Denies rash, itching, or wounds. MUSCULOSKELETAL: Denies back pain, joint pain, or myalgia. NEUROLOGIC: Denies headache, numbness, tingling, or weakness. PSYCH: Denies depression or anxiety. [facility] Past Medical History Medical History Acid reflux Anemia Anxiety Cataract fragments in both eyes following surgery Depression Glaucoma High cholesterol Hypothyroidism Osteoporosis Pelvic organ prolapse quantification stage 1 rectocele Skin cancer of forehead Vaginal atrophy Surgical History Surgical History H/O hysterectomy with oophorectomy H/O shoulder surgery History of bladder surgery History of hip replacement Hx of cholecystectomy Family History Family History Mother Family history of coronary artery disease Family history of cardiovascular disease Sibling D
== END 2024-03-05 14:10 | disposition home or self-care (01) ==
PROVIDERS: Emergency Provider Nurse Practitioner; PCP Family Medicine
DX: H65.01 Acute serous otitis media, right ear (principal); Z87.891 Personal history of nicotine dependence; K21.9 Gastro-esophageal reflux disease without esophagitis; H40.9 Unspecified glaucoma; E78.00 Pure hypercholesterolemia, unspecified; M81.0 Age-related osteoporosis without current pathological fracture; Z85.828 Personal history of other malignant neoplasm of skin; F41.9 Anxiety disorder, unspecified; F32.A Depression, unspecified; Z79.82 Long term (current) use of aspirin
CPT/HCPCS: 99211; G0463

== ENCOUNTER 2024-05-25 10:20 | Emergency (ER) | payer MEDICARE, MEDICAID, SELFPAY ==
--- NOTE | ~2024-05-25 | XR_ITS ---
EXAMINATION: XR sacrum coccyx min 2V DATE: 05/25/2024 11:33 INDICATION: Sacrococcygeal pain post fall TECHNIQUE: Frontal, angled frontal and lateral views of the sacrum and coccyx were obtained. COMPARISON: CT dated 01/03/2021 FINDINGS: Unchanged mild anterior angulation at the caudal-most sacral segment and mild leftward angulation of the coccyx both findings which could be either developmental or sequela of old trauma. Alignment is o therwise normal. No other fractures identified. Sacral arches are intact. No fracture. Mild lumbar sp ondylosis. Partially visualized right total hip arthroplasty. Mild bilateral sacroiliac osteoarthriti s. Surgical clips the right lower quadrant likely related to prior appendectomy. Atherosclerotic calc ifications at the abdominal aorta and lateral common iliac arteries. IMPRESSION: 1. No acute osseous abnormality. Reviewed, dictated and finalized at location A.
--- NOTE | ~2024-05-25 | XR_ITS ---
EXAMINATION: XR ribs RT 2V w CXR 2V DATE: 05/25/2024 11:33 INDICATION: Right rib pain post fall TECHNIQUE: PA and lateral views of the chest and 3 views of the right ribs were obtained. COMPARISON: Chest radiograph dated 12/14/2022 FINDINGS: No rib fractures identified. Diffuse increased interstitial pattern in the bilateral mid and lower ella ng zones consistent with mild pulmonary edema. No pleural effusion or pneumothorax. Cardiomegaly. Den se mitral annular calcification. Cholecystectomy clips in right upper quadrant. Bone island at the le ft humeral neck. IMPRESSION: 1. No rib fractures. 2. Increased interstitial pattern in the bilateral mid and lower lung zones which could represent mil d pulmonary edema or less likely pneumonia. Reviewed, dictated and finalized at location A. IMPRESSION: 1. No rib fractures. 2. Increased interstitial pattern in the bilateral mid and lower lung zones whi ch could represent mild pulmonary edema or less likely pneumonia.
--- NOTE | ~2024-05-25 | XR_ITS ---
Thoracic spine: Clinical Indication: Back pain AP and lateral views were performed. No fracture is seen. There is normal alignment of the vertebrae. There is moderate to advanced degen erative disc narrowing throughout the thoracic spine. There is facet arthropathy throughout the thora cic spine. Paravertebral soft tissues appear normal. Impression: Moderate degenerative spondylosis. No fracture or subluxation evident. Reviewed, dictated and finalized at location . Impression: Moderate degenerative spondylosis. No fracture or subluxation evident.
--- NOTE | ~2024-05-25 | XR_ITS ---
Right wrist Technique: PA, oblique, lateral, and ulnar deviation views were obtained. Clinical History: Pain Findings: No acute fracture or dislocation is seen. Osseous alignment is anatomic. There is mild dege nerative change of the first CMC joint. Soft tissues are unremarkable. Impression: No fracture or dislocation. Mild degenerative change of the first CMC joint. Reviewed, dictated and finalized at location . Impression: No fracture or dislocation. Mild degenerative change of the first CMC joint.
--- NOTE | ~2024-05-25 | XR_ITS ---
Right Shoulder Technique: AP and scapular Y views were obtained. Clinical History: Pain Findings: No fracture or dislocation is seen. Osseous alignment is anatomic. The glenohumeral joint i s intact. There is moderate AC joint degenerative change. Soft tissues are unremarkable. Impression: Moderate AC joint degenerative change. No fracture or dislocation seen. Reviewed, dictated and finalized at location . Impression: Moderate AC joint degenerative change. No fracture or dislocation seen.
[2024-05-25 10:22] VITALS: BP 159/58; PULSE 74; RESP 18; TEMP 36.8; O2SAT 98
--- NOTE | 2024-05-25 10:26 | ED.FALL ---
HPI - Fall General Chief Complaint: Fall Stated Complaint: fall Time Seen by Provider: 05/25/24 10:22 Source: patient Mode of arrival: ambulatory Limitations: no limitations History of Present Illness HPI Narrative: Patient is a 79-year-old female, with past medical history of chronic hypoxic respiratory failure on 2 L nasal cannula at all times, who presents to the ED with report of a fall. Patient reports she tripped over her oxygen tubing on Friday and fell. Attempted to catch herself with her R wrist. C/o pain and bruising to her R wrist. Has not taken anything for pain today. Also c/o pain to her R shoulder, tailbone. She did not hit her head or lose consciousness. Denied any dizziness/lightheadedness prior to the fall. Denies numbness/weakness. She is not on any blood thinners. Related Data Home Medications Medication Instructions Recorded Confirmed aspirin 81 mg tablet,delayed 81 mg PO DAILY 07/16/19 02/24/24 release (Adult Low Dose Aspirin) lubiprostone 8 mcg capsule 8 mcg PO BID 07/16/19 02/24/24 (Amitiza) julaedjs-idqectoju-btnjyzhl 3.5 1 drop ophthalmic (eye) BID 07/16/19 02/24/24 mg/mL-10,000 unit/mL-0.1% eye drops (Maxitrol) sertraline 100 mg tablet 100 mg PO HS 08/29/21 02/24/24 ibuprofen 800 mg tablet 800 mg PO TID PRN Pain (Scale 12/12/22 02/24/24 Score 7-10) lisinopril 5 mg tablet 5 mg PO DAILY 03/26/23 02/24/24 albuterol sulfate 90 mcg/actuation 1 inh inhalation Q4H 02/24/24 02/24/24 aerosol inhaler brimonidine 0.2 % eye drops 1 drp EACH EYE Q8H 02/24/24 02/24/24 multivit,Ca,iron,dim-QA-watpqh-lycopene-rfr934 cap PO 02/24/24 02/24/24 3 mg-133 mcg-33 mcg cap netarsudil 0.02 % eye drops 1 drp EACH EYE QPM 02/24/24 02/24/24 (Rhopressa) oxybutynin chloride 5 mg 5 mg PO DAILY 02/24/24 02/24/24 tablet,extended release 24 hr tramadol 50 mg tablet 50 mg PO Q6H PRN 02/24/24 02/24/24 triamcinolone acetonide 0.5 % 1 applic topical DAILY 02/24/24 02/24/24 topical cream Allergies Allergy/AdvReac Type Severity Reaction Status Date / Time amoxicillin Allergy Severe HIVES Verified 03/05/24 13:36 ampicillin Allergy Unknown Other Verified 03/05/24 13:36 azithromycin Allergy Unknown Other Verified 03/05/24 13:36 carisoprodol Allergy Unknown Other Verified 03/05/24 13:36 celecoxib Allergy Unknown Other Verified 03/05/24 13:36 ciprofloxacin Allergy Unknown Other Verified 03/05/24 13:36 codeine Allergy Unknown Other Verified 03/05/24 13:36 erythromycin base Allergy Unknown Nausea Verified 03/05/24 13:36 morphine Allergy Unknown Other Verified 03/05/24 13:36 Penicillins Allergy Unknown Other Verified 03/05/24 13:36 Review of Systems Review of Systems: All systems reviewed & are unremarkable except as noted in HPI. All systems reviewed & are unremarkable except as noted in HPI and below PMFSH Past Medical History Medical History (Updated 05/25/24 @ 12:25 by Blanca Szymanski PA-C) Acid reflux Anemia Anxiety Cataract fragments in both eyes following surgery Depression Glaucoma High cholesterol Hypothyroidism Osteoporosis Pelvic organ prolapse quantification stage 1 rectocele Skin cancer of forehead Vaginal atrophy Surgical History Surgical History H/O hysterectomy with oophorectomy H/O shoulder surgery History of bladder surgery History of hip replacement Hx of cholecystectomy Family History Family History Mother Family history of coronary artery disease Family history of cardiovascular disease Sibling Diabetes mellitus Cerebrovascular accident Family history of malignant neoplasm of urinary bladder Family history of thyroid disease Family history of blood dyscrasia Asthma Family history of hearing loss Father Patient's father is Sibling Cerebrovascular accident Other Family history of lung diseas
[2024-05-25 11:36] VITALS: BP 166/56; PULSE 84; RESP 20; TEMP 36.6; O2SAT 95
[2024-05-25 12:31] VITALS: BP 170/69; PULSE 82; RESP 18; TEMP 36.6; O2SAT 97
== END 2024-05-25 12:33 | disposition home or self-care (01) ==
PROVIDERS: Emergency Provider Physician Assistant; PCP Family Medicine
DX: S63.501A Unspecified sprain of right wrist, initial encounter (principal); J96.11 Chronic respiratory failure with hypoxia; Z99.81 Dependence on supplemental oxygen; E78.00 Pure hypercholesterolemia, unspecified; E03.9 Hypothyroidism, unspecified; K21.9 Gastro-esophageal reflux disease without esophagitis; M81.0 Age-related osteoporosis without current pathological fracture; H40.9 Unspecified glaucoma; F41.9 Anxiety disorder, unspecified; F32.A Depression, unspecified; Z96.649 Presence of unspecified artificial hip joint; Z85.828 Personal history of other malignant neoplasm of skin; Z87.891 Personal history of nicotine dependence; Z90.710 Acquired absence of both cervix and uterus; Z90.49 Acquired absence of other specified parts of digestive tract; Z79.899 Other long term (current) drug therapy; Z79.82 Long term (current) use of aspirin; M47.816 Spondylosis without myelopathy or radiculopathy, lumbar region; R91.8 Other nonspecific abnormal finding of lung field; W18.09XA Striking against other object with subsequent fall, initial encounter
CPT/HCPCS: 71046; 71100; 72072; 72220; 73030; 73110; 99284; A9270

== ENCOUNTER 2024-06-21 10:48 | Outpatient (CLI) | payer MEDICARE, MEDICAID, SELFPAY | END 2024-06-21 10:49 | disposition home or self-care (01) | LOC: ANHAUDIO 10:49 | PROVIDERS: PCP Family Medicine; Visit Provider Nurse Practitioner Family | DX: H90.3 Sensorineural hearing loss, bilateral (principal); H93.19 Tinnitus, unspecified ear; Z76.89 Persons encountering health services in other specified circumstances | CPT/HCPCS: 92557; 92567 ==

== ENCOUNTER 2024-08-31 09:18 | Emergency (ER) | payer MEDICARE, MEDICAID, SELFPAY ==
[2024-08-31 09:20] VITALS: BP 141/45; PULSE 77; RESP 18; TEMP 36.4; O2SAT 96
--- NOTE | 2024-08-31 09:42 | PC.NURSE ---
Patient daughter to desk stating she spoke with someone in the lobby who told her she'd been waiting 7 hours. Patient daughter states that her mom cannot wait that long because she is old and that she will try our ER again at the end of the week when it dies down . Patient and daughter out of ED with no issue and in no acute distress.
== END 2024-08-31 10:30 | disposition left against medical advice (07) ==
LOC: ANHED 09:50
PROVIDERS: PCP Family Medicine
DX: M54.9 Dorsalgia, unspecified (principal)
CPT/HCPCS: 99199

== ENCOUNTER 2024-10-05 11:04 | Outpatient (CLI) | payer MEDICARE, MEDICAID, SELFPAY ==
--- NOTE | ~2024-10-05 | XR_ITS ---
3 VIEWS LUMBAR SPINE Ordering provider: Sil Vizcaino, PICKLE PROCESSOR History: . NON TRAUMA LBP FOR SEVERAL MONTHS . Comparison: None. FINDINGS: VERTEBRAL BODIES: No visible fracture or subluxation. Degenerative changes of the spine DISK SPACES: Narrowing of the disc L3-L4 and L4-L5. SOFT TISSUES: Aortic atherosclerotic changes. Right hip arthroplasty. IMPRESSION: No acute osseous abnormality lumbar spine. Multilevel degenerative disc disease. Reviewed, dictated and finalized at location A. IGERATOR MOVER
== END 2024-10-05 11:05 | disposition home or self-care (01) ==
PROVIDERS: PCP Nurse Practitioner Family; Visit Provider Nurse Practitioner Family
DX: M51.369 Other intervertebral disc degeneration, lumbar region without mention of lumbar back pain or lower extremity pain (principal)
CPT/HCPCS: 72100

== ENCOUNTER 2024-11-18 09:53 | Outpatient (CLI) | payer MEDICARE, MEDICAID, SELFPAY | END 2024-11-18 09:54 | disposition home or self-care (01) | LOC: MICIMG 09:54 | PROVIDERS: PCP Internal Medicine; Visit Provider Nurse Practitioner Family | DX: M47.816 Spondylosis without myelopathy or radiculopathy, lumbar region (principal) | CPT/HCPCS: 72148 ==